=== PATIENT | female | born 1935 | race Caucasian/White ===

== ENCOUNTER 2017-06-10 23:07 | Inpatient (IN) | payer MEDICARE, MEDICAID ==
[2017-06-11 00:26] LABS: Bilirubin Negative (Negative); Blood, Urine Trace (Negative); Clarity CLEAR (Clear); Glucose, Urine (Dipstick) Negative (Negative); Leukocyte Moderate (Negative); Nitrite Negative (Negative); Protein, Urine (Dipstick) 30 mg/dL (Neg-Trace); Specific Gravity, Urine 1.007 (1.002-1.036); pH, Urine 7.5 (5.0-9.0)
[2017-06-11 00:29] LABS: Bacteria/HPF None Seen HPF (None Seen); Hyaline Casts/LPF 0-3 HYALINE CAST LPF (0-3 Hyaline); Pathc Cast-AUWi Flag 0.29 (0-2.49); Squamous Epithelial 0-3 HPF (0-3); WBC/HPF 21-50 HPF (0-3)
[2017-06-11 01:24] LABS: #Eosinphils 0.1 thou/uL (0.0-0.7); #Lymphocytes 0.7 thou/uL (1.20-3.40); #Monocytes 1.1 thou/uL (0.11-0.59); #Neutrophils 9.2 thou/uL (1.40-6.50); %Basophils 0.2 % (0.0-1.0); %Eosinophils 1.1 % (0.0-10.0); %Monocytes 9.8 % (0.0-10.0); Hemoglobin 11.9 g/dL (12.0-16.0); Mean Corpuscular HGB CONC 33.6 g/dL (32.0-36.0); Mean Corpuscular Hemoglobin 29.2 pg (27.0-31.0); Mean Corpuscular Volume 86.8 fl (81.0-99.0); Mean Platelet Volume 8.8 fL (7.4-10.4); Platelet Count 243 thou/uL (130-400); RBC Distribution Width 13.2 % (11.5-14.5); Red Blood Cell (RBC) Count 4.07 mill/uL (4.20-5.40); White Blood Cell (WBC) Count 11.1 thou/uL (4.8-10.8)
[2017-06-11 01:44] LABS: Anion Gap 12 mmol/L (10-20); BUN (Urea Nitrogen) 10 mg/dL (9.8-20.1); Calc. Creatinine Clearance 0 mL/min (70-130); Calcium 9.2 mg/dL (7.8-10.44); Carbon Dioxide 26 mmol/L (23-31); Chloride 97 mmol/L (98-107); Estimated GFR-MDRD 75; Glucose 121 mg/dL (83-110); Potassium 3.4 mmol/L (3.5-5.1); Sodium 132 mmol/L (136-145)
[2017-06-11] MEDS ORDERED: Bisacodyl 10 MG SUPP PR PRN (01:54)
[2017-06-11] MEDS ORDERED: Ondansetron HCl/PF 4 MG/2 ML Vial IVP PRN (02:02)
[2017-06-11] MEDS ORDERED: Dextrose 50% Abboject 50 ML SYRINGE SLOW IVP PRN (02:02)
[2017-06-11] MEDS ORDERED: HumaLOG 300 UNITS/3 ML VIAL SC PRN (02:02)
[2017-06-11] MEDS ORDERED: Ondansetron ODT 4 MG TAB PO PRN (02:02)
[2017-06-11] MEDS ORDERED: Dextrose 5% in Water 1,000 ML IV PRN (02:02)
[2017-06-11] MEDS ORDERED: Acetaminophen 500 MG TAB PO PRN (02:10)
[2017-06-11] MEDS ORDERED: Potassium Chloride 40 MEQ in Sodium Chloride 0.9% 250 ML 250 ML IVPB SCH (03:00)
[2017-06-11 03:21] LABS: CKMB 6.2 ng/mL (0-6.6); Troponin I 0.018 ng/mL (< 0.028)
[2017-06-11 03:49] LABS: Anion Gap 11 mmol/L (10-20); BUN (Urea Nitrogen) 9 mg/dL (9.8-20.1); Calc. Creatinine Clearance 0 mL/min (70-130); Calcium 9.2 mg/dL (7.8-10.44); Carbon Dioxide 28 mmol/L (23-31); Chloride 97 mmol/L (98-107); Estimated GFR-MDRD 72; Glucose 122 mg/dL (83-110); Potassium 3.5 mmol/L (3.5-5.1); Sodium 132 mmol/L (136-145)
[2017-06-11] MEDS: hydrALAZINE 20 MG/ML VIAL SLOW IVP PRN ×2 (05:19→17:27)
--- NOTE | 2017-06-11 05:38 | HP ---
DATE OF ADMISSION: 06/11/2017 ATTENDING PHYSICIAN: Dr. Hammond. TRAUMA ACTIVATION: Not applicable. HISTORY OF PRESENT ILLNESS: Rylie Harp is an 82-year-old female with a history of dementia who pre sented to [facility], status post fall. The patient is a poor historian and majority of the histo ry was obtained from records review and discussion with ER personnel. Patient reports falling after attempting to get up from a chair earlier today. Per ER physician, the patient has a history of freq uent UTIs and had been demonstrating some increased confusion over the weekend, but appears to be at baseline at this time. She had a scalp contusion and left hip pain. She was evaluated by the emerge ncy room and found to have a small midline subdural versus subarachnoid hemorrhage. Neurosurgery was notified and Trauma Services was asked to admit. Upon my evaluation, the patient has vocalized no c omplaint. ALLERGIES: CODEINE, ADHESIVE TAPE, IODINE, LATEX, NATURAL RUBBER, SHELLFISH-CONTAINING PRODUCTS, and SULFONAMIDE. PAST MEDICAL HISTORY: Significant for dementia; hypertension; diabetes; hypothyroidism; hyperlipidem ia; coronary artery disease, status post bypass; GERD; history of CVA; osteoporosis; frequent falls; anxiety and depression. PAST SURGICAL HISTORY: Coronary artery bypass in 2001, cholecystectomy, hysterectomy, tubal ligation , and left hip replacement. HOME MEDICATIONS: Include aspirin 81 mg, atorvastatin 20 mg, clonidine 0.1 mg p.r.n., benzocaine mary enges p.r.n. daily, CoQ10 daily, Colace 100 mg b.i.d., Dulcolax suppository p.r.n., iron supplement b .i.d., fluoxetine 80 mg at bedtime, folic acid 800 mcg daily, sliding scale insulin, Synthroid 100 mc g p.o. daily, lisinopril 40 mg p.o. daily, loperamide p.r.n., milk of magnesia p.r.n., MiraLax p.r.n. , multivitamins daily, nitropatch 0.2 mg per hour transdermal daily, Zofran 4 mg q.4 hours p.r.n., My rbetriq 10 mg p.o. daily, Protonix 40 mg p.o. daily, Sinemet 25-100 t.i.d., Ultram 50 mg p.o. p.r.n., valsartan 40 mg p.o. daily, Tums p.r.n., Tylenol 1 gram p.r.n. SOCIAL HISTORY: Patient is a resident at [facility]. Reportedly, she is a past to bacco user, but no report of any alcohol or illicit drug use. FAMILY HISTORY: Unobtainable. REVIEW OF SYSTEMS: Unobtainable. PHYSICAL EXAMINATION: VITAL SIGNS: Blood pressure 174/86, pulse 57, O2 sat 92% on room air, temperature 98.1. GENERAL: A well-developed elderly female resting in bed, in no acute distress. HEAD: Normocephalic. EYES: Pupils are PERRLA. Extraocular movements are intact. NECK: Supple. Trachea is midline. There does not appear to be any midline cervical tenderness. CHEST/PULMONARY: Atraumatic. No tenderness to palpation. Normal work of breathing. Symmetric rise. CARDIOVASCULAR: Regular rate and rhythm, systolic ejection murmur. ABDOMEN/GASTROINTESTINAL: Soft, nontender, nondistended. Bowel sounds are positive. BACK: Reported as being within normal limits. MUSCULOSKELETAL: Bilateral upper extremities within normal limits. Left lower extremity within norm al limits. No edema. Pulses are 2+ bilaterally. NEUROLOGIC: GCS is 14 secondary to confusion. The patient is oriented to self, person, place, and s ituation. LABORATORY DATA: WBC 11.1, hemoglobin 11.9, hematocrit 35.3, platelet count 243,000. Sodium 132, po tassium 3.4, chloride 97, carbon dioxide 26, BUN 10, creatinine 0.74, glucose 121. Urinalysis with p roteinuria, trace blood, moderate leukocyte esterase, and 21-50 wbc's. RADIOGRAPHIC FINDINGS: CT of the head, read by Radiology as having a trace midline subdural versus s ubarachnoid. CT of the C-spine, official read is pending. X-ray of the pelvis appears similar to pr evious without acute fracture, but official read is pending. ASSESSMENT: 1. Status post mechanical fall. 2. Small subdural hemorrhage. 3. Acute traumatic pain. 4. Hypokalemia. 5. Hyponatremia, chronic and stable. 6. History of dementia. 7. History of hypertension. 8. History of coronary artery disease. PLAN: Admit to Trauma Services. I have discussed the case with Neurosurgery who recommends a repeat head CT in the a.m., head of bed greater than 30 degrees, systolic blood pressure less than 150 and frequent neuro checks. Empiric antibiotics for suspected UTI. Follow urine culture. Replete electr olytes. Repeat labs in the a.m. Followup CT of C-spine results. The patient's assessment and plan was discussed with Dr. Hammond. All questions were answered at the time of this dictation.
[2017-06-11 06:27] VITALS: BMI 25.9
--- NOTE | 2017-06-11 08:52 | CON ---
DATE OF CONSULTATION: 06/11/2017 Ms. Harp is an 82-year-old woman, who fell at her [place] [facility] yesterday, late evening or early mor nestor hours, and this morning, she was brought to the emergency department at [facility] by EMS. Alessandro colón had a CT scan of the brain and then later of the C-spine, which revealed a small parafalcine subdur al hemorrhage anteriorly. This could potentially represent an area of calcification, as she does hav e some calcifications on the scan done 2 years ago, but it is certainly an increase in the amount of hyperdense material in this location. So, given the trauma, it is reasonable that there is hemorrhag e acutely. C-spine is clear other than degenerative disease, but no fracture, dislocation, or other acute change. I am seeing the patient at bedside this morning. She is minimally uncomfortable and s omewhat confused, but GCS is overall 14. She has good motor control of the bilateral upper and lower extremities. There is no sensory disturbance that I can discern. Pupils are equal, round, reactive to light. Extraocular movements are intact. At this time, Neurosurgery's plan will just be to repe at the scan this morning to make sure that her imaging is stable. If so and she is safe to return to her [place] [facility], then we would support discharge as early as lunch time today.
--- NOTE | 2017-06-11 08:56 | CT ---
PRELIMINARY REPORT/[facility]/EMERGENTY AFTER-HOURS PROCEDURE Addendum created by Mauricio Petit MD on 06/11/2017 12:28 AM Central Time ([place] & [place] THIS REPORT CONTAINS FINDINGS THAT MAY BE CRITICAL TO PATIENT CARE. The findings were verbally commun icated via telephone conference with CASPER TUCKER at 12:28 AM CDT on 06/11/2017. The findings were a cknowledged and understood. Initial Report created on 06/11/2017 12:24 AM Central Time ([place] & [place]) CT Head Without Intravenous Contrast CLINICAL HISTORY: 82 years old, female; Injury or trauma; Fall; Initial encounter; Abrasion; Not specified; Patient HX: Er 4; 82 yo f presents to the ed S/P fall. Pt fell at 2100 today (1-1.5 hours ago). Pt tried getttin g up from chair, fell, spun around and hit head against chair. Pt reports no loc, no dizziness. Pt re ports left hip pain with movement. Family reports frequent falls. Pt reports she is not on blood thin ner medication. TECHNIQUE: Axial computed tomography images of the head/brain without intravenous contrast. COMPARISON: Head CT report dated 01/25/2016 FINDINGS: Brain: Minimal midline hyperdensity images 22-23 Mild volume loss. Mild white matter disease. No ramiro a. Ventricles: Unremarkable. No ventriculomegaly. Bones/joints: Unremarkable. No acute fracture. Soft tissues: Mild right parietal scalp swelling at the convexity Sinuses: Unremarkable as visualized. No acute sinusitis. Mastoid air cells: Unremarkable as visualized. No mastoid effusion. IMPRESSION: Trace midline subdural versus arachnoid hemorrhage suspected. Continued CT followup recommended Thank you for allowing us to participate in the care of your patient. Dictated and Authenticated by: Mauricio Petit MD 06/11/2017 12:24 AM Central Time ([place] & [place]) FINAL REPORT EMERGENCY AFTER HOURS STUDY CT BRAIN NONCONTRAST: DATE: 06/11/17. TIME: 12:17 a.m. HISTORY: An 82-year-old female status post acute head trauma from fall. COMPARISON: 10/12/15. FINDINGS: There is a tiny amount of extraaxial hyperdensity along the anterior interhemispheric falx on the cur rent study, which was not present on previous CT of 10/12/15, indicating that it is probably a tiny am ount of subdural blood. There is no other acute intraaxial or extraaxial hemorrhage. The ventricles are enlarged on the basis of central parenchymal volume loss. There are moderate to severe chronic ischemic white matter changes diffusely. No mass effect, midline shift, extraaxial fluid collection, or acute calvarial fracture. There is also a new small focal superficial soft tissue contusion at the right posterior scalp vertex . Agree with [facility]. IMPRESSION: 1. Tiny amount of acute subdural hemorrhage along the interhemispheric falx. Recommend short interv al followup CT. 2. No other hemorrhage, and no mass effect. 3. Involutional changes and chronic ischemic white matter changes. YNES Wren POS: [facility]
[2017-06-11] MEDS ORDERED: Nitrofurantoin Monohyd/M-Cryst 100 MG CAP PO SCH (09:00)
[2017-06-11] MEDS ORDERED: Sulfameth/Trimethoprim DS 800-160mg TAB PO SCH (09:00)
[2017-06-11] MEDS ORDERED: Valsartan 80 MG TAB PO SCH (09:00)
[2017-06-11] MEDS ORDERED: Lisinopril 20 MG TAB PO SCH (09:00)
[2017-06-11] MEDS ORDERED: Levothyroxine Sodium 100 MCG TAB PO SCH (09:00)
[2017-06-11] MEDS ORDERED: Docusate 100 MG CAP PO SCH (09:00)
[2017-06-11] MEDS ORDERED: Famotidine 20 MG TAB PO SCH (09:00)
--- NOTE | 2017-06-11 09:02 | CT ---
PRELIMINARY REPORT/[facility]/EMERGENTY AFTER-HOURS PROCEDURE CT Cervical Spine Without Intravenous Contrast CLINICAL HISTORY: 82 years old, female; Injury or trauma; Fall; Initial encounter; Abrasion; Patient HX: Er 4; 82 yo f presents to the ed S/P fall. Pt fell at 2100 today. Pt tried gettting up from chair, fell, spun aroun d and hit head against chair. Pt reports no loc, no dizziness. TECHNIQUE: Axial computed tomography images of the cervical spine without intravenous contrast. Coronal and sagi ttal reformatted images were created and reviewed. COMPARISON: No relevant prior studies available. FINDINGS: Vertebrae: Minimal multilevel degenerative spondylolisthesis. No acute fracture. Discs/spinal canal/neural foramina: Multilevel degenerative disc disease. Multilevel bilateral facet and uncovertebral arthropathy. Right C5-6 neural foraminal narrowing. No spinal canal stenosis. Soft tissues: Normal. Lung apices: Normal as visualized. IMPRESSION: 1. No acute findings. 2. Non-acute findings are described above. Thank you for allowing us to participate in the care of your patient. Dictated and Authenticated by: Keaton He MD 06/11/2017 2:38 AM Central Time ([place] & [place]) FINAL REPORT CT CERVICAL SPINE: I agree with the preliminary report given by Dr. He of [facility]. POS: [facility]
--- NOTE | 2017-06-11 09:09 | RAD ---
PELVIS 1 VIEW: HISTORY: Fall. Hip pain. COMPARISON: None. FINDINGS: There is heterotopic ossification along the left lesser greater trochanters. The obturator rings yolette ear to be intact. No displaced fracture or malalignment is appreciated. IMPRESSION: Heterotopic ossification. No displaced fracture or malalignment. POS: [facility]
[2017-06-11 09:29] LABS: Magnesium 1.9 mg/dL (1.6-2.6); Phosphorus 3.1 mg/dL (2.3-4.7)
[2017-06-11] MEDS ORDERED: Furosemide 20 MG TAB PO SCH (10:30)
[2017-06-11] MEDS ORDERED: Prevnar 13-Val Conj/PF 0.5 ML SYRINGE IM ONE (12:00)
--- NOTE | 2017-06-11 14:49 | CT ---
CT BRAIN NONCONTRAST: HISTORY: An 82-year-old female followup subdural hemorrhage. FINDINGS: There is no midline shift or any other mass effect. There is no evidence of large cortical infarct, obstructive hydrocephalus, or extraaxial fluid collection. The calvarium is intact. There is diffus e parenchymal volume loss. There are low attenuation areas in the white matter. These are nonspecif ic, but in a patient of this age, they are probably chronic ischemic white matter changes due to micr ovascular atherosclerosis. The tiny amount of blood along the anterior interhemispheric falx is stab le compared to CT obtained at 12:17 a.m. on 06/11/17. There is no new hemorrhage. IMPRESSION: 1) Tiny amount of subdural hemorrhage along the interhemispheric falx has not changed since 12:17 a.m . 2) Involutional changes and chronic ischemic white matter changes. 3) No other potentially acute intracranial findings. ysabel [] POS: [facility]
[2017-06-11 17:43] VITALS: TEMP 98.3
[2017-06-11 17:44] VITALS: BP 133/59
--- NOTE | 2017-06-11 18:56 | DIS ---
DATE OF ADMISSION: 06/10/2017 DATE OF DISCHARGE: 06/11/2017 ADMITTING PHYSICIAN: Dr. Hammond. DISCHARGING PHYSICIAN: Dr. Salinas. ADMITTING DIAGNOSES: 1. Status post mechanical fall. 2. Small anterior falcine frontal subdural hematoma. 3. Acute hypokalemia. 4. Chronic hyponatremia, stable. 5. History of senile dementia of Alzheimer's type. 6. History of Parkinson disease. HOSPITAL COURSE: This is an 82-year-old woman with a history of senile dementia of Alzheimer's type and Parkinson disease. The patient is a resident of an extended care facility from where she was bro ught to the Emergency Department for a mechanical fall. Trauma workup was consistent with acute smal l anterior falcine frontal subdural hematoma. The patient's Tammy coma scale has remained at 14-15 . The patient was evaluated by Neurosurgery and nonoperative management was recommended. A follow u p CT scan has been obtained which reveals stable small anterior falcine frontal subdural hematoma. T he patient has remained hemodynamically stable since admission. OBJECTIVE: CURRENT VITAL SIGNS: Include blood pressure 144/67, pulse 76, respirations 16, temperature 97.7 degr ees Fahrenheit, and oxygen saturation 96% on room air. HEENT: Examination reveals normocephalic and atraumatic. Pupils are equal, round, reactive to light and accommodation. HEART: Reveals regular rate and rhythm, no murmurs or gallops auscultated. LUNGS: Clear to auscultation bilaterally. Breathing is regular and unlabored. ABDOMEN: Soft, nontender, nondistended. Liver and spleen are nonpalpable below costal margin. EXTREMITIES: Reveals 2+ radial and pedal pulses bilaterally. No ankle edema is present. NEUROLOGIC: Examination reveals no focal deficits present. In fact, patient's [place] coma scale cu rrently is 15. MUSCULOSKELETAL: Examination reveals 4/5 muscle strength in bilateral upper and lower extremities. Cervical spine is nontender to palpation, active or passive range of motion. Thoracic and lumbar spi jean are nontender to palpation. No gross bony deformities are noted. LABORATORY DATA: Laboratory findings today includes sodium 132, potassium 3.5, chloride is 97, bicar bonate 28, BUN 9, creatinine 0.77, glucose 122, magnesium 1.9, phosphorus 3.1. IMAGING DATA: I personally reviewed the repeat CT scan of the brain which reveals very small anterio r falcine subdural hematoma, this is unchanged. IMPRESSION: 1. Status post mechanical fall. 2. Stable acute traumatic brain injury with small anterior falcine frontal subdural hematoma. 3. History of Parkinson disease. 4. History of senile dementia, Alzheimer's type. PLAN: 1. The patient will be discharged back to the extended care facility where physical and occupational therapy will be continued. 2. She is to be returned to the emergency department with any change in her mental status, worsening gait imbalance, especially if any lateralizing signs. She is to resume all her prehospital medicati on as prescribed by her primary care physicians. No new medications were added. 3. The patient requires no further followup from this Trauma Surgery standpoint except for as needed . 4. Follow up by Neurosurgery, this will be accomplished through the Neurosurgery office.
[2017-06-11] MEDS ORDERED: FLUoxetine HCl 20 MG CAP PO SCH (21:00)
== END 2017-06-11 17:40 | DRG 86 ==
LOC: ERS 23:07 → 2NO 06-11 01:45 → OBSVTOIN 06-11 02:02
PROVIDERS: ADMIT Specialist; ATTEND Specialist
DX: S06.5X0A Traumatic subdural hemorrhage without loss of consciousness, initial encounter (principal); E87.1 Hypo-osmolality and hyponatremia; E11.9 Type 2 diabetes mellitus without complications; G30.1 Alzheimer's disease with late onset; F02.80 Dementia in other diseases classified elsewhere, unspecified severity, without behavioral disturbance, psychotic disturbance, mood disturbance, and anxiety; E87.6 Hypokalemia; E03.9 Hypothyroidism, unspecified; I10 Essential (primary) hypertension; E78.5 Hyperlipidemia, unspecified; I25.10 Atherosclerotic heart disease of native coronary artery without angina pectoris; K21.9 Gastro-esophageal reflux disease without esophagitis; M81.0 Age-related osteoporosis without current pathological fracture; Z91.81 History of falling; F41.9 Anxiety disorder, unspecified; F32.9 Major depressive disorder, single episode, unspecified; W19.XXXA Unspecified fall, initial encounter; Z90.49 Acquired absence of other specified parts of digestive tract; Z90.710 Acquired absence of both cervix and uterus; Z96.642 Presence of left artificial hip joint; Z79.82 Long term (current) use of aspirin; Z79.899 Other long term (current) drug therapy; Z87.891 Personal history of nicotine dependence; Z95.1 Presence of aortocoronary bypass graft; Z88.5 Allergy status to narcotic agent; Z86.73 Personal history of transient ischemic attack (TIA), and cerebral infarction without residual deficits
CPT/HCPCS: 36415; 36416; 70450; 72125; 72170; 80048; 81003; 81015; 82553; 83735; 84100; 84484; 85025; 87086; 96374; 96375; G0390; G8978-GP-CL; G8979-GP-CK; J0360; J0696; J3480; J7050

== ENCOUNTER 2017-07-11 13:08 | Outpatient (CLI) | payer MEDICARE, MEDICAID ==
--- NOTE | 2017-07-11 15:13 | CT ---
CT HEAD, NONCONTRAST: Comparison: 06-11-17 Indication: Subdural hematoma, follow up. FINDINGS: Prior minute subdural hematoma along the interhemispheric falx has resolved. There is no extraaxial h emorrhage of significance remaining. There is motion artifact limiting detail. Chronic ischemic disea se and prominence of the ventricular system are present, stable appearing. IMPRESSION: Interval resolution of prior minute subdural hematoma. POS: [facility]
== END 2017-07-11 13:09 | disposition home or self-care (01) ==
LOC: TBSIIMAG 13:08
PROVIDERS: ATTEND Neurological Surgery
DX: S06.5X0A Traumatic subdural hemorrhage without loss of consciousness, initial encounter (principal)
CPT/HCPCS: 70450

== ENCOUNTER 2018-06-18 11:54 | Emergency (ER) | payer MEDICARE, MEDICAID ==
--- NOTE | 2018-06-18 12:40 | RAD ---
LEFT HIP TWO VIEWS: HISTORY: Fall. Left hip pain. COMPARISON: Previous exam from 05/18/2016. TECHNIQUE: AP and lateral views of left hip obtained. FINDINGS: The patient has had a previous left hip arthroplasty. A large osseous fragment is seen along the med ial aspect of the left hip joint, where I suspect there was a fractured lesser trochanter. This has undergone some adjacent areas of myositis ossificans as well, likely restricting the motion of th e hip medially. No evidence of acute left hip fractures or acute bony lesions seen. Previously fractured greater tro chanter appears to now be healed and has fused with the proximal left femur. IMPRESSION: 1. No evidence of acute left hip abnormalities seen. 2. Post surgical changes seen. Transcribed Date/Time: 06/18/2018 1:30 PM
--- NOTE | 2018-06-18 13:08 | CT ---
CT BRAIN WITHOUT CONTRAST: HISTORY: Fall. Altered mental status. Hypertension. Diabetes. COMPARISON: 07/12/2017 FINDINGS: Changes of chronic small vessel ischemic disease and cortical atrophy are stable. The ventricular si ze is stable, and the basilar cisterns are patent. No evidence of acute infarct, hemorrhage, midline shift, or abnormal extraaxial fluid collections is seen. The bony calvarium is intact. The visuali zed paranasal sinuses and mastoid air cells are well aerated. IMPRESSION: No CT evidence of acute intracranial process. POS: [facility]
[2018-06-18 13:31] LABS: Hemoglobin 10.2 g/dL (12.0-16.0); Mean Corpuscular HGB CONC 31.4 g/dL (32.0-36.0); Mean Corpuscular Hemoglobin 27.1 pg (27.0-31.0); Mean Corpuscular Volume 86.2 fL (78.0-98.0); Mean Platelet Volume 14.5 fL (7.4-10.4); Platelet Count 24 thou/uL (130-400); RBC Distribution Width 12.4 % (11.5-14.5); Red Blood Cell (RBC) Count 3.77 mill/uL (4.20-5.40); White Blood Cell (WBC) Count 8.6 thou/uL (4.8-10.8)
[2018-06-18 13:37] LABS: ALT (SGPT) 8 U/L (8-55); AST (SGOT) 16 U/L (5-34); Albumin 3.9 g/dL (3.4-4.8); Alkaline Phosphatase 125 U/L (40-150); Anion Gap 10 mmol/L (10-20); BUN (Urea Nitrogen) 25 mg/dL (9.8-20.1); Bilirubin, Total 0.3 mg/dL (0.2-1.2); Calc. Creatinine Clearance 0 mL/min (70-130); Calcium 9.3 mg/dL (7.8-10.44); Carbon Dioxide 30 mmol/L (23-31); Chloride 99 mmol/L (98-107); Estimated GFR-MDRD 62; Globulin 2.3 g/dL (2.4-3.5); Glucose 100 mg/dL (83-110); Potassium 4.1 mmol/L (3.5-5.1); Protein, Total 6.2 g/dL (6.0-8.3); Sodium 135 mmol/L (136-145)
[2018-06-18 13:46] LABS: #Eosinphils 0.2 thou/uL (0.0-0.7); #Lymphocytes 0.8 thou/uL (1.20-3.40); #Monocytes 1.3 thou/uL (0.11-0.59); #Neutrophils 6.2 thou/uL (1.40-6.50); %Basophils 0.2 % (0.0-1.0); %Eosinophils 2.9 % (0.0-10.0); %Lymphocytes 9.7 % (21.0-51.0); %Monocytes 14.8 % (0.0-10.0); %Neutrophils 72.3 % (42.0-75.0); Hypochromia SLIGHT = 6-15 cells (100X) (0-5/hpf); MDiff Complete? YES; Platelet Morphology Comment Appears Decreased
[2018-06-18 15:53] LABS: Hemoglobin 10.1 g/dL (12.0-16.0); Mean Corpuscular HGB CONC 31.5 g/dL (32.0-36.0); Mean Corpuscular Hemoglobin 27.4 pg (27.0-31.0); Mean Corpuscular Volume 86.8 fL (78.0-98.0); RBC Distribution Width 12.5 % (11.5-14.5); Red Blood Cell (RBC) Count 3.68 mill/uL (4.20-5.40); White Blood Cell (WBC) Count 8.4 thou/uL (4.8-10.8)
[2018-06-18 16:14] LABS: #Eosinphils 0.2 thou/uL (0.0-0.7); #Monocytes 1.2 thou/uL (0.11-0.59); #Neutrophils 5.9 thou/uL (1.40-6.50); %Basophils 0.4 % (0.0-1.0); %Eosinophils 2.9 % (0.0-10.0); %Lymphocytes 12.1 % (21.0-51.0); %Monocytes 13.8 % (0.0-10.0); %Neutrophils 70.8 % (42.0-75.0); Mean Platelet Volume 14.7 fL (7.4-10.4); Platelet Morphology Comment PLT clumps seen-ADEQ
[2018-06-18 16:15] LABS: Large Platelets SLIGHT
[2018-06-18] MEDS ORDERED: Lorazepam 1 MG TAB ONE (17:17)
== END 2018-06-18 17:46 ==
LOC: ERS 11:54
DX: M25.552 Pain in left hip (principal); E03.9 Hypothyroidism, unspecified; E66.01 Morbid (severe) obesity due to excess calories; E11.9 Type 2 diabetes mellitus without complications; K21.9 Gastro-esophageal reflux disease without esophagitis; F41.9 Anxiety disorder, unspecified; F42.9 Obsessive-compulsive disorder, unspecified; E78.5 Hyperlipidemia, unspecified; Z87.891 Personal history of nicotine dependence; Z79.82 Long term (current) use of aspirin; Z79.899 Other long term (current) drug therapy; W19.XXXA Unspecified fall, initial encounter
CPT/HCPCS: 36415; 70450; 80053; 84484; 85025; 85060; 93005

== ENCOUNTER 2018-08-31 08:29 | Inpatient (IN) | payer MEDICARE, MEDICAID ==
[2018-08-31] MEDS ORDERED: Ondansetron PF 4 MG/2 ML Vial ONE (08:44)
[2018-08-31 09:25] LABS: Bilirubin Negative (Negative); Blood, Urine Negative (Negative); Clarity Clear (Clear); Glucose, Urine (Dipstick) Normal (Negative); Leukocyte Negative Leu/uL (Negative); Mucous/LPF Rare LPF (<2+); Nitrite Negative (Negative); Protein, Urine (Dipstick) 30 mg/dL (Neg-Trace); RBC/HPF 0-3 HPF (0-3); Squamous Epithelial 0-3 HPF (0-3); Urobilinogen 3 mg/dL (Less than 2)
[2018-08-31 09:36] LABS: Bacteria/HPF 1+ HPF (None Seen)
[2018-08-31 09:36] LABS: ALT (SGPT) Less than 7 U/L (8-55); AST (SGOT) 19 U/L (5-34); Albumin 3.9 g/dL (3.4-4.8); Alkaline Phosphatase 123 U/L (40-150); Anion Gap 10 mmol/L (10-20); BUN (Urea Nitrogen) 14 mg/dL (9.8-20.1); Bilirubin, Total 0.6 mg/dL (0.2-1.2); Calc. Creatinine Clearance 0 mL/min (70-130); Calcium 9.2 mg/dL (7.8-10.44); Carbon Dioxide 29 mmol/L (23-31); Chloride 89 mmol/L (98-107); Estimated GFR-MDRD 58; Globulin 2.4 g/dL (2.4-3.5); Glucose 109 mg/dL (83-110); Potassium 3.4 mmol/L (3.5-5.1); Protein, Total 6.3 g/dL (6.0-8.3); Sodium 125 mmol/L (136-145)
[2018-08-31 09:38] LABS: Hemoglobin 9.8 g/dL (12.0-16.0); Mean Corpuscular HGB CONC 32.7 g/dL (32.0-36.0); Mean Corpuscular Hemoglobin 26.1 pg (27.0-31.0); Mean Corpuscular Volume 79.9 fL (78.0-98.0); RBC Distribution Width 14.2 % (11.5-14.5); Red Blood Cell (RBC) Count 3.76 mill/uL (4.20-5.40); White Blood Cell (WBC) Count 10.9 thou/uL (4.8-10.8)
[2018-08-31 09:45] LABS: #Eosinphils 0.1 thou/uL (0.0-0.7); #Lymphocytes 0.7 thou/uL (1.20-3.40); #Neutrophils 9.3 thou/uL (1.40-6.50); %Basophils 0.2 % (0.0-1.0); %Eosinophils 0.6 % (0.0-10.0); %Lymphocytes 5.9 % (21.0-51.0); %Monocytes 8.7 % (0.0-10.0); %Neutrophils 84.6 % (42.0-75.0); MDiff Complete? YES; Mean Platelet Volume 11.2 fL (7.4-10.4); Platelet Count 115 thou/uL (130-400); Platelet Morphology Comment PLT clumps seen-LOW; Polychromasia SLIGHT = 2-3 cells (100X) (0-2/hpf)
--- NOTE | 2018-08-31 11:42 | PDOC.FPRHP ---
- History of Present Illness Chief Complaint: nausea/vomiting History of Present Illness: Mrs. Harp is a 83yo senior care resident with h/o dementia, DMII, HTN, CVA , TIA, and CHF s/p CABG who presents nausea and vomiting. Patient's baseline mentation is confused and disoriented thus history was obtained from daughters at bedside. Daughters state that Mrs. Harp was in her usual state of health until this morning when they got a call from the senior care that she was found hunched over a toilet vomiting. She was initially hypertensive at the senior care, and was then transported to the ED for further evaluation and management. The daughters note she is more clammy, generally tired, and less talkative today. They state she has had decreased PO intake as of late, barely eating any food or drinking any liquids other than a few sip of Ensures at meals, and have noticed a weight loss over the past few months. She current denies any CP, SOB, diarrhea/constipation, dysuria, abdominal pain, or recent illness. She does have a history of recurrent UTI's per the daughters. She also has a history of GI bleeds requiring transfusion, last a few years ago, unable to identify location and had endoscopy and pill cam at that time. NO recent s/s of acute GI bleed. ED Course: Given 1L NS bolus and zofran with relief of nausea. Na found to be 125. Admitted for symptomatic hyponatremia. - Allergies/Adverse Reactions Allergies Allergy/AdvReac Type Severity Reaction Status Date / Time iodine Allergy Severe Anaphylaxis Verified 05/28/16 10:47 shellfish derived Allergy Severe Anaphylaxis Verified 05/28/16 10:47 codeine Allergy Unknown Verified 05/28/16 10:47 Sulfa (Sulfonamide Allergy Unknown Verified 05/28/16 10:47 Antibiotics) adhesive tape Allergy Verified 05/28/16 10:47 Latex, Natural Rubber Allergy Verified 05/28/16 10:47 - Home Medications Medication Instructions Recorded Confirmed Type Acetaminophen [Tylenol Extra 500 mg PO Q4HR PRN 05/21/16 08/31/18 History Strength] Atorvastatin Calcium [Lipitor] 20 mg PO HS 05/21/16 08/31/18 History Benzocaine/Menthol [Cepacol Sore 1 each PO Q12HR PRN 05/21/16 08/31/18 History Throat Lozenge] Calcium Carbonate [Tums] 1,000 mg PO Q4HR PRN 05/21/16 08/31/18 History Carbidopa/Levodopa [Sinemet CR] 1 tab PO TID 05/21/16 08/31/18 History Docusate [Colace] 100 mg PO BID 05/21/16 08/31/18 History FLUoxetine HCl 80 mg PO DAILY 05/21/16 08/31/18 History Folic Acid 0.8 mg PO DAILY 05/21/16 08/31/18 History Hydrocortisone [Proctocream-HC 1 applic WI BID PRN 05/21/16 08/31/18 History Cream] Insulin Regular [HumuLIN R Vial] 1 unit SC ASDIR 05/21/16 08/31/18 History Levothyroxine Sodium [Synthroid] 100 mcg PO QAM 05/21/16 08/31/18 History Lisinopril 40 mg PO DAILY 05/21/16 08/31/18 History Loperamide HCl [Loperamide] 2 mg PO ASDIR PRN 05/21/16 08/31/18 History Magnesium Hydroxide [Milk of 30 ml PO HS PRN 05/21/16 08/31/18 History Magnesia] Multivitamin [Multivitamins] 1 cap PO DAILY 05/21/16 08/31/18 History Nitroglycerin [Nitro-Dur Patch] 0.2 mg TD DAILY 05/21/16 08/31/18 History Ondansetron [Zofran ODT] 4 mg PO Q4HR PRN 05/21/16 08/31/18 History Polyethylene Glycol 3350 [Miralax] 17 gm PO DAILY 05/21/16 08/31/18 History Ubidecarenone [Coenzyme Q10] 100 mg PO DAILY 05/21/16 08/31/18 History cloNIDine HCl 0.1 mg PO Q6HR PRN 05/21/16 08/31/18 History Hypromellose [Pure & Gentle Eye 1 drop EA EYE BID 06/11/17 08/31/18 History Drops] cloNIDine [Catapres] 0.1 mg PO DAILY 06/11/17 08/31/18 History Aspirin [Adult Low Dose Aspirin EC] 81 mg PO DAILY 08/31/18 08/31/18 History Bisacodyl [Dulcolax] 10 mg WI DAILY PRN 08/31/18 08/31/18 History BuPROPion XL [Wellbutrin XL] 150 mg PO DAILY 08/31/18 08/31/18 History Donepezil HCl [Aricept] 10 mg PO HS 08/31/18 08/31/18 History Hydrochlorothiazide 12.5 mg PO DAILY 08/31/18 08/31/18 History Losartan Potassium 50 mg PO DAILY 08/31/18 08/31/18 History Melatonin 6 mg PO HS 08/31/18 08/31/18 History Nystatin [Nystatin Powder] 1 applic TOP BID 08/31/18 08/31/18 History guaiFENesin [Guaifenesin] 200 mg PO Q4HR PRN 08/31/18 08/31/18 History - History PMHx: Alzheimer's, Parkinson's, HTN, Hypothyroid, HLD, DM II, GERD, CHF, h/o GI bleeds (last few years ago), h/o CVA, h/o subdural, h/o TIA PSHx: CABG x4v - 2001 Marisa, hysterectomy, L hip replacement FHx: NC Social: Smoking in past but quit >10 years ago. No EtOH or drug use. - Review of Systems ROS unobtainable: other (ROS per senior care and family 2/2 patient's h/o dementia.) General: reports: weight/appetite/sleep changes (decrease weight over past few months.), fatigue. denies: fever/chills ENT: denies: nasal congestion, rhinorrhea Respiratory: denies: cough, congestion, shortness of breath Cardiovascular: denies: chest pain, palpitation, edema Gastrointestinal: reports: nausea, vomiting, abdominal pain (mild and cramping in nature. Occuring on and off over months.). denies: diarrhea, constipation Genitourinary: denies: dysuria, polyuria Skin: denies: rashes Neurological: reports: weakness (generalized fatigue). denies: numbness, syncope, seizure - Vital signs BP: 161/61 HR: 43 RR: 18 Tmax: 97.5 Pox: 99% on RA Wt: 62kg - Physical Exam Constitutional: NAD, awake, alert and oriented (A/O x 2. Quite and confused at times. Baseline mentation per family.) HEENT: normocephalic and atraumatic, PERRLA, EOMI Neck: supple, trachea midline Chest: no-tender to palpation Heart: normal S1/S2, pulses present, no edema, other (Regular rythm, bradycardia , Grade III systolic ejection murmur best heard at base.) Lungs: CTAB, no respiratory distress, good air movement, no rales/rhonchi, no wheezing, no retractions Abdomen: soft, non-tender, bowel sounds present Musculoskeletal: normal structure Neurological: no focal deficit, normal sensation Skin: no rash/lesions Heme/Lymphatic: no unusual bruising or bleeding Psychiatric: other FMR H&P: Results - Labs Result Diagrams: 08/31/18 09:00 08/31/18 09:00 Lab results: WBC 10.9 thou/uL (4.8-10.8) H 08/31/18 09:00 Hgb 9.8 g/dL (12.0-16.0) L 08/31/18 09:00 Hct 30.0 % (36.0-47.0) L 08/31/18 09:00 MCV 79.9 fL (78.0-98.0) 08/31/18 09:00 Plt Count 115 thou/uL (130-400) L 08/31/18 09:00 Neutrophils % 84.6 % (42.0-75.0) H 08/31/18 09:00 Sodium 125 mmol/L (136-145) L 08/31/18 09:00 Potassium 3.4 mmol/L (3.5-5.1) L 08/31/18 09:00 Chloride 89 mmol/L (98-107) L 08/31/18 09:00 Carbon Dioxide 29 mmol/L (23-31) 08/31/18 09:00 BUN 14 mg/dL (9.8-20.1) 08/31/18 09:00 Creatinine 0.92 mg/dL (0.6-1.1) 08/31/18 09:00 Glucose 109 mg/dL (83-110) 08/31/18 09:00 Calcium 9.2 mg/dL (7.8-10.44) 08/31/18 09:00 Total Bilirubin 0.6 mg/dL (0.2-1.2) 08/31/18 09:00 AST 19 U/L (5-34) 08/31/18 09:00 ALT Less than 7 U/L (8-55) L 08/31/18 09:00 Alkaline Phosphatase 123 U/L (40-150) 08/31/18 09:00 Serum Total Protein 6.3 g/dL (6.0-8.3) 08/31/18 09:00 Albumin 3.9 g/dL (3.4-4.8) 08/31/18 09:00 Urine Ketones 10 mg/dL (Negative) A 08/31/18 08:55 Urine Blood Negative (Negative) 08/31/18 08:55 Urine Nitrite Negative (Negative) 08/31/18 08:55 Ur Leukocyte Esterase Negative Hong/uL (Negative) 08/31/18 08:55 Urine RBC 0-3 HPF (0-3) 08/31/18 08:55 Urine WBC 4-6 HPF (0-3) A 08/31/18 08:55 Ur Squamous Epith Cells 0-3 HPF (0-3) 08/31/18 08:55 Urine Bacteria 1+ HPF (None Seen) 08/31/18 08:55 - EKG Interpretation EKG: Sinus bradycardia. 1st degree AV block with WI of 212. No acute T wave or ST changes. FMR H&P: A/P - Problem List (1) Hyponatremia Current Visit: Yes Status: Acute Code(s): E87.1 - HYPO-OSMOLALITY AND HYPONATREMIA (2) Physical deconditioning Current Visit: Yes Status: Chronic Code(s): R53.81 - OTHER [place] (3) Asymptomatic bacteriuria Current Visit: Yes Status: Acute Code(s): R82.71 - BACTERIURIA (4) Coronary artery disease Current Visit: No Status: Chronic Code(s): I25.10 - ATHSCL HEART DISEASE OF [place] CORONARY ARTERY W/O ANG PCTRS Qualifiers: Coronary Disease-Associated Artery/Lesion type: bypass graft [place] vs. transplanted heart: [place] heart Associated angina: without angina Qualified Code(s): I25.810 - Atherosclerosis of coronary artery bypass graft(s) without angina pectoris (5) DM type 2 (diabetes mellitus, type 2) Current Visit: No Status: Chronic Qualifiers: Diabetes mellitus buttermaker helper insulin use: with residential use Diabetes mellitus complication status: with unspecified complications (6) GERD (gastroesophageal reflux disease) Current Visit: No Status: Chronic Code(s): K21.9 - GASTRO-ESOPHAGEAL REFLUX DISEASE WITHOUT ESOPHAGITIS Qualifiers: Esophagitis presence: esophagitis presence not specified Qualified Code(s) : K21.9 - Gastro-esophageal reflux disease without esophagitis Comment: (7) Hypertension Current Visit: No Status: Chronic Code(s): I10 - ESSENTIAL (PRIMARY) HYPERTENSION Qualifiers: Hypertension type: essential hypertension Qualified Code(s): I10 - Essential (primary) hypertension (8) Parkinsons disease Current Visit: No Status: Chronic Code(s): G20 - PARKINSON'S DISEASE - Plan Mrs. Harp is a 83yo senior care resident with h/o dementia, CAD s/p CABG, and HTN who presents for symptomatic hyponatremia. 1. Symptomatic hyponatremia - likely hypovolemic hyponatremia due to poor PO intake - Pt with n/v this morning. Decreased alertness per family. - Na 125 (~132 at last discharge) - Will provide gentle hydration with LR @ 100ml/hr and recheck BMP at 1630 this afternoon and again in AM. - Hold HCTZ at this time, and consider holding Lisinopril if Na does not begin to correct as expected - Serum Osm, Urine Osm, and Urine Na pending 2. Asymptomatic Bacteriuria - UA with 4-6 WBC and 1+ Bacteria. Likely 2/2 contraction and chronic bacteriuria. - Afebrile and without sxs at this time. WBC 10.9. - UCx pending - Will monitor and provide Abx if sxs occur, UCx positive, or pt spikes fever. 3. Physical deconditioning and poor PO intake - chronic in nature. Providing ensures TID with meals. - Fall precautions. - PT/OT and gantry crane operator consulted, appreciate recs - Will check vit D 4. HTN - Continue home cozaar and lisinopril at this time. Hold HCTZ 5. Hypothyroidism - Check TSH. Continue home levo. 6. Dementia/Parkinsons - continue home medications 7. DM II - Placed on mild SS. Will check BG ACHS 8. CAD with CHF - volume depleted at this time. Will provide gently hydration per #1 but monitor volume status closely. - Heart healthy diet with fluid restriction of 2000ml daily. Diet: Heart healthy with ensure TID with meals and 2000ml fluid restriction VTE: Lovenox Code: DNR - discussed with patient's daughter at bedside who is MPoA. Disposition/LOS: Admitted to medical floor of further hydration, increased PO, and correction of Na. Will monitor closely. Anticipate hospitalization >2 days. FMR H&P: Upper Level - Pertinent history 83 yo F w/hx of advanced Alzheimer's Dementia, CAD s/p CABG, CVA, hypothyroid, DM2 and CHF here with complaint from senior care staff of n/v with associated depressed mood. Pt is apparently quite talkative, however this morning is more reserved and wont answer questions. Pt has a hx of recurrent UTIs See recruiting internship portion of note for full ROS, HPI, labs, and vitals All ROS per family General denies fever or chills Resp denies SOB, increased work of breathing, or cough CV denies pedal edema or chest pain Abd complains of n/v for past few days Psych no changes in metal baseline other than less talkative Neuro no weakness or slurred speech - Pertinent findings PE General A&O x0, no acute distress, pt is alert however doesn't answer questions HEENT NCAT CV systolic murmur 3/, no pedal edema Resp CTA b/l Abd non tender Neuro will not follow commands, no facial drooping or obvious focal deficits - Plan Date/Time: 08/31/18 1141 I, Cuate Bates DO, have evaluated this patient and agree with findings/plan as outlined by recruiting internship resident. Pertinent changes/additions are listed here. 1. Acute on chronic hyponatremia - Likely related to poor PO intake on top of thiazide - Urine studies for FeNa and serum osm pending, will adjust plan of care if indicated - Gentle rehydration - Monitor BMP this afternoon and again in am - hold HCTZ, prn HTN meds 2. Possible UTI - most likely asymptomatic bacteruria, no concern for acute infection at this time. - Cultures pending 3. CAD - continue home meds 4. HTN - home meds other than HTZ 5. Alzheimer's Dementia - at baseline. Continue home meds 6. Hypothyroid - continue synthroid Addendum - Attending - Attending Attestation Date/Time: 08/31/18 1974 I personally evaluated the patient and discussed the management with Dr. Johnson/ Jana. I agree with the History, Examination, Assessment and Plan documented above with any addition or exceptions noted below. Patient here with nausea/vomiting, and mild change in mentation. Patient has poor appetite at baseline due to history of dementia. Brought to ER from her living facility. She is mildly dry on exam, normal vitals. Sodium level noted to be 125 changed from baseline low 130s. She is also hypochloremic. Urine has overall low specific gravity and urine sodium elevated. She is noted to be on both ACEi/ARB and HCTZ. Patient will be admitted for hyponatremia, suspect multifactorial in etiology. Will continue fluid hydration and trend serum sodium levels to avoid over correction. Suspect this is partially due to medication effect and so ACEi and HCTZ discontinued for the time being. Encourage PO solute intake. No other major abnormalities noted. Anticipate fairly quick turnaround and hopefully only 1-2 days hospitalization pending clinical course.
[2018-08-31] MEDS ORDERED: Ondansetron ODT 4 MG TAB PO PRN ×2 (12:10→12:22)
[2018-08-31] MEDS ORDERED: Ondansetron PF 4 MG/2 ML Vial IVP PRN (12:10)
[2018-08-31] MEDS ORDERED: Acetaminophen 325 MG TAB PO PRN (12:13)
[2018-08-31] MEDS ORDERED: Dextrose 5% in Water 1,000 ML IV PRN (12:22)
[2018-08-31] MEDS ORDERED: Dextrose 50% Abboject 50 ML SYRINGE SLOW IVP PRN (12:22)
[2018-08-31] MEDS ORDERED: Proctozone-HC 2.5% Cream 30 GM TUBE PR PRN (12:58)
[2018-08-31] MEDS ORDERED: cloNIDine 0.1 MG TAB PO PRN (12:58)
[2018-08-31] MEDS ORDERED: Milk Of Magnesia 30 ML UDCUP PO PRN (12:58)
[2018-08-31] MEDS ORDERED: Loperamide HCl 2 MG CAP PO PRN (12:58)
[2018-08-31] MEDS ORDERED: Bisacodyl 10 MG SUPP PR PRN (12:58)
[2018-08-31] MEDS ORDERED: Diabetic Tussin 200 MG/10 ML UDCUP PO PRN (12:58)
[2018-08-31] MEDS ORDERED: Calcium Carbonate 500 MG ChewTAB PO PRN (12:58)
[2018-08-31] MEDS ORDERED: HumaLOG 300 UNITS/3 ML VIAL SC PRN ×2 (13:00)
[2018-08-31] MEDS: Lactated Ringer's 1,000 ML IV SCH ×2 (13:09→23:59)
[2018-08-31] MEDS ORDERED: Cepastat Lozenges 1 LOZ PO PRN (13:15)
[2018-08-31 13:37] VITALS: BMI 25.3
[2018-08-31] MEDS: Carbidopa/Levodopa CR 50-200 mg Tablet PO SCH ×2 (16:36→20:45)
[2018-08-31 16:49] LABS: Magnesium 1.6 mg/dL (1.6-2.6); Phosphorus 3.4 mg/dL (2.3-4.7)
[2018-08-31 16:50] LABS: Anion Gap 13 mmol/L (10-20); BUN (Urea Nitrogen) 13 mg/dL (9.8-20.1); Calc. Creatinine Clearance 53 mL/min (70-130); Calcium 8.8 mg/dL (7.8-10.44); Carbon Dioxide 24 mmol/L (23-31); Chloride 93 mmol/L (98-107); Estimated GFR-MDRD 68; Glucose 78 mg/dL (83-110); Potassium 3.5 mmol/L (3.5-5.1); Sodium 126 mmol/L (136-145)
[2018-08-31 17:10] LABS: Thyroid Stimulating Hormone 0.4099 uIU/mL (0.35-4.94); Vitamin D, 25 Hydroxy 19.1 ng/ml (> 30.0)
[2018-08-31] MEDS ORDERED: Labetalol HCl 100 MG/20 ML VIAL SLOW IVP PRN (17:54)
[2018-08-31] MEDS: Melatonin 3 MG TAB PO SCH (20:45)
[2018-08-31] MEDS: Docusate 100 MG CAP PO SCH (20:45)
[2018-08-31] MEDS: Artificial Tear Sol 15 ML BOT EA EYE SCH (20:47)
[2018-08-31] MEDS: Nystatin Powder 15 GM BOT TOP SCH (20:47)
[2018-08-31] MEDS ORDERED: Donepezil HCl 10 MG TAB PO SCH (21:00)
[2018-08-31] MEDS ORDERED: Atorvastatin Calcium 40 MG TAB PO SCH (21:00)
--- NOTE | 2018-09-01 05:24 | PDOC.FM ---
- Subjective Subjective: Pt has no complaints overnight. She is AAOx3. She has poor intake per nurse, but she states she is not hungry. Her last bowel movement is on 08/30. - Objective MAR Reviewed: Yes Vital Signs & Weight: Vital Signs (12 hours) Temp Pulse Resp BP Pulse Ox 09/01/18 04:00 98.0 F 55 L 18 137/55 L 95 09/01/18 00:00 97.7 F 56 L 16 143/48 H 94 L 08/31/18 20:00 98.1 F 52 L 18 130/51 L 93 L Weight Weight 62.868 kg I&O: 08/30/18 08/31/18 09/01/18 06:59 06:59 06:59 Intake Total 670 Output Total 450 Balance 220 Result Diagrams: 09/01/18 05:53 09/01/18 05:54 Additional Labs: Urine culture still pending. EKG Reviewed by me: Yes (EKG on admission showed bradycardia with 1st degree heart block.) Phys Exam - Physical Examination HEENT: PERRLA, moist MMs Neck: no nodes, supple Respiratory: no wheezing, no rales, no rhonchi, clear to auscultation bilateral Cardiovascular: RRR Systolic murmur heard best over aortic valve with radiation to the neck. Gastrointestinal: soft, non-tender, positive bowel sounds Musculoskeletal: no edema, pulses present Neurological: non-focal, normal sensation, moves all 4 limbs Lymphatic: no nodes Psychiatric: normal affect, A&O x 3 Dx/Plan (1) Hyponatremia Code(s): E87.1 - HYPO-OSMOLALITY AND HYPONATREMIA Status: Acute (2) Asymptomatic bacteriuria Code(s): R82.71 - BACTERIURIA Status: Acute (3) Polypharmacy Code(s): Z79.899 - OTHER L[employer] DEF[employer] ARTILLERY CREWMEMBER (CURRENT) DRUG THERAPY Status: Chronic (4) Coronary artery disease Code(s): I25.10 - ATHSCL HEART DISEASE OF [place] CORONARY ARTERY W/O ANG PCTRS Status: Chronic Qualifiers: Coronary Disease-Associated Artery/Lesion type: bypass graft [place] vs. transplanted heart: [place] heart Associated angina: without angina Qualified Code(s): I25.810 - Atherosclerosis of coronary artery bypass graft(s) without angina pectoris (5) DM type 2 (diabetes mellitus, type 2) Status: Chronic Qualifiers: Diabetes mellitus buttermaker insulin use: with mcc use Diabetes mellitus complication status: with unspecified complications (6) Dyslipidemia Code(s): E78.5 - HYPERLIPIDEMIA, UNSPECIFIED Status: Chronic (7) Hypertension Code(s): I10 - ESSENTIAL (PRIMARY) HYPERTENSION Status: Chronic Qualifiers: Hypertension type: essential hypertension Qualified Code(s): I10 - Essential (primary) hypertension (8) Hypothyroidism Code(s): E03.9 - HYPOTHYROIDISM, UNSPECIFIED Status: Chronic Qualifiers: Hypothyroidism type: unspecified Qualified Code(s): E03.9 - Hypothyroidism , unspecified (9) Parkinsons disease Code(s): G20 - PARKINSON'S DISEASE Status: Chronic - Plan Plan: Mrs. Harp is a 83 [facility] with h/o dementia, CAD s/p CABG , and HTN who presents for symptomatic hyponatremia. 1. Symptomatic hyponatremia - Likely hypovolemic hyponatremia due to poor PO intake - Pt says n/v has resolved. Decreased alertness per family. - Na 125 (~132 at last discharge) - Will provide gentle hydration with LR @ 100ml/hr and recheck BMP checked this morning with Na up to 129 from 126. - Serum Osm-265, Urine Osm-530, and Urine Na-95. - Hold HCTZ at this time, and consider holding Lisinopril if Na does not begin to correct as expected. - Checking a lipid panel to rule out Hyperlipidemia as cause for hyponatremia. Hyponatremia can also be due to HCTZ use and resolution protracted. TSH is wnl. 2. Asymptomatic Bacteriuria - UA with 4-6 WBC and 1+ Bacteria. Likely 2/2 contraction and chronic bacteriuria. - Afebrile and without sxs at this time. WBC 10.9. - UCx still pending - Will monitor and provide Abx if sxs occur, UCx positive, or pt spikes fever. 3. Physical De-conditioning and poor PO intake - Chronic in nature. Providing ensures TID with meals. - Fall precautions. - PT/OT and violent crimes detective consulted, appreciate recs - Vit D- 19.1 is low. Will replace. 4. Polypharmacy - We think this may be the cause of her AMS on admission. - Discussed with family and will hold Aricept, Clonidine, and Atorvastatin along with HCTZ and Lisinopril. We will also decrease the dose of her Sinemet. 5. HTN - Continue home Cozaar and Lisinopril at this time. Hold HCTZ. 6. Hypothyroidism - TSH is wnl. - Continue home med: levothyroxine 7. Dementia/Parkinsons - continue home medication: Aricept 8. DM II - Placed on mild SS. Will check BG ACHS. Pt is controlled with BG <110, so will continue this protocol. 9. CAD with CHF - Volume depleted at this time. Will provide gently hydration per hyponatremia but monitor volume status closely. - Heart healthy diet with fluid restriction of 2000ml daily. Diet: Heart healthy with ensure TID with meals and 2000ml fluid restriction. DVT Prophylaxis: Lovenox Code Status: DNR - discussed with patient's daughter at bedside who is MPoA. Dispo: Admitted to medical floor of further hydration, increased PO, and correction of Na. Will monitor closely. Anticipate hospitalization >2 days.
[2018-09-01] MEDS: Levothyroxine Sodium 100 MCG TAB PO SCH (05:53)
[2018-09-01 06:19] LABS: #Eosinphils 0.1 thou/uL (0.0-0.7); #Lymphocytes 0.7 thou/uL (1.20-3.40); #Monocytes 0.9 thou/uL (0.11-0.59); #Neutrophils 6.8 thou/uL (1.40-6.50); %Basophils 0.4 % (0.0-1.0); %Eosinophils 0.9 % (0.0-10.0); %Lymphocytes 7.7 % (21.0-51.0); %Monocytes 10.5 % (0.0-10.0); %Neutrophils 80.5 % (42.0-75.0); Hemoglobin 8.9 g/dL (12.0-16.0); Mean Corpuscular HGB CONC 31.2 g/dL (32.0-36.0); Mean Corpuscular Hemoglobin 26.5 pg (27.0-31.0); Mean Corpuscular Volume 85.1 fL (78.0-98.0); Mean Platelet Volume 10.1 fL (7.4-10.4); Platelet Count 88 thou/uL (130-400); RBC Distribution Width 14.7 % (11.5-14.5); Red Blood Cell (RBC) Count 3.35 mill/uL (4.20-5.40); White Blood Cell (WBC) Count 8.4 thou/uL (4.8-10.8)
[2018-09-01 06:38] LABS: Anion Gap 12 mmol/L (10-20); BUN (Urea Nitrogen) 11 mg/dL (9.8-20.1); Calc. Creatinine Clearance 54 mL/min (70-130); Calcium 8.7 mg/dL (7.8-10.44); Carbon Dioxide 26 mmol/L (23-31); Chloride 94 mmol/L (98-107); Estimated GFR-MDRD 69; Glucose 67 mg/dL (83-110); Potassium 3.3 mmol/L (3.5-5.1); Sodium 129 mmol/L (136-145)
[2018-09-01] MEDS: FLUoxetine HCl 20 MG CAP PO SCH (08:29)
[2018-09-01] MEDS: Folic Acid 1 MG TAB PO SCH (08:34)
[2018-09-01] MEDS: Losartan 25 MG TAB PO SCH (08:34)
[2018-09-01] MEDS: Multivitamin W/ Minerals 1 TAB PO SCH (08:34)
[2018-09-01] MEDS: Aspirin 81 mg Enteric Coated Tablet PO SCH (08:35)
[2018-09-01] MEDS: Carbidopa/Levodopa CR 50-200 mg Tablet PO SCH (08:35)
[2018-09-01] MEDS: Artificial Tear Sol 15 ML BOT EA EYE SCH ×2 (08:36→20:25)
[2018-09-01] MEDS: Docusate 100 MG CAP PO SCH ×2 (08:36→20:27)
[2018-09-01] MEDS: Polyethylene Glycol 3350 17 GM Packet PO SCH (08:37)
[2018-09-01] MEDS: Enoxaparin Sodium 40 MG/0.4 ML SYRINGE SC SCH (08:37)
[2018-09-01] MEDS: Bupropion 150 MG XL TAB PO SCH (08:38)
[2018-09-01] MEDS: Lactated Ringer's 1,000 ML IV SCH ×2 (08:44→18:39)
[2018-09-01] MEDS: Nystatin Powder 15 GM BOT TOP SCH ×2 (08:46→20:27)
[2018-09-01] MEDS ORDERED: Cholecalciferol (Vitamin D3) 400 UNITS TAB PO SCH (09:00)
[2018-09-01] MEDS ORDERED: Lisinopril 20 MG TAB PO SCH (09:00)
[2018-09-01] MEDS ORDERED: Ubidecarenone 50 MG CAP PO SCH (09:00)
[2018-09-01] MEDS ORDERED: Nitroglycerin 0.2mg/Hour PATCH TD SCH (09:00)
[2018-09-01] MEDS ORDERED: cloNIDine 0.1 MG TAB PO SCH (09:00)
[2018-09-01] MEDS: Ondansetron ODT 4 MG TAB PO PRN (09:24)
--- NOTE | 2018-09-01 12:21 | PRG ---
DATE OF SERVICE: 09/01/2018 SUBJECTIVE: Ms. Harp is an 83-year-old [facility] patient, who was admitted with mental confusion and hyponatremia. She was on 31 medications at the [facility]. I had a long discussion this morning with the residents and the family about the need to reduce her medications to those that are absolutely necessary versus those that are nice to take. We will begin to reduce the patient's medication load with the blessing of the family. In the event already this morning after stopping many of her medications, she is much more lucid. Her sodium has improved to 129 with a slow lactated Ringer's infusion as well as mild fluid restriction. We will continue to monitor this until it gets above at least 130 and her sensorium returns more to her baseline. Job ID: [id number]
[2018-09-01 14:28] LABS: Cardiac Risk 3.1 (Less than 4.5)
[2018-09-01] MEDS ORDERED: Carbidopa/Levodopa 10-100 mg Tablet PO SCH (15:00)
[2018-09-01] MEDS: Carbidopa/Levodopa 10-100 mg Tablet PO SCH ×2 (16:04→20:26)
[2018-09-01] MEDS: Melatonin 3 MG TAB PO SCH (20:27)
[2018-09-02] MEDS: Lactated Ringer's 1,000 ML IV SCH ×2 (04:21→14:33)
[2018-09-02 04:33] LABS: #Eosinphils 0.2 thou/uL (0.0-0.7); #Lymphocytes 0.9 thou/uL (1.20-3.40); #Monocytes 1.1 thou/uL (0.11-0.59); #Neutrophils 6.7 thou/uL (1.40-6.50); %Basophils 0.2 % (0.0-1.0); %Lymphocytes 10.4 % (21.0-51.0); %Monocytes 12.5 % (0.0-10.0); %Neutrophils 74.9 % (42.0-75.0); Hemoglobin 8.9 g/dL (12.0-16.0); Mean Corpuscular HGB CONC 30.6 g/dL (32.0-36.0); Mean Corpuscular Hemoglobin 24.7 pg (27.0-31.0); Mean Corpuscular Volume 80.6 fL (78.0-98.0); Platelet Count 86 thou/uL (130-400); RBC Distribution Width 13.2 % (11.5-14.5); Red Blood Cell (RBC) Count 3.59 mill/uL (4.20-5.40); White Blood Cell (WBC) Count 8.9 thou/uL (4.8-10.8)
[2018-09-02 04:37] LABS: Anion Gap 8 mmol/L (10-20); BUN (Urea Nitrogen) 8 mg/dL (9.8-20.1); Calc. Creatinine Clearance 55 mL/min (70-130); Calcium 9.2 mg/dL (7.8-10.44); Carbon Dioxide 33 mmol/L (23-31); Chloride 96 mmol/L (98-107); Estimated GFR-MDRD 71; Glucose 79 mg/dL (83-110); Potassium 4.1 mmol/L (3.5-5.1); Sodium 133 mmol/L (136-145)
[2018-09-02] MEDS: Levothyroxine Sodium 100 MCG TAB PO SCH (05:15)
--- NOTE | 2018-09-02 05:33 | PDOC.FM ---
- Subjective Subjective: She has no complaints this morning. She is not eating well and complains food has no taste. - Objective MAR Reviewed: Yes Vital Signs & Weight: Vital Signs (12 hours) Temp Pulse Resp BP Pulse Ox 09/02/18 04:00 97.9 F 43 L 20 175/61 H 93 L 09/02/18 00:43 52 L 173/64 H 09/02/18 00:00 98.0 F 57 L 20 183/65 H 92 L 09/01/18 20:00 97.9 F 44 L 20 154/45 H 97 Weight Admit Weight 62.868 kg Weight 62.868 kg I&O: 08/31/18 09/01/18 09/02/18 06:59 06:59 06:59 Intake Total 670 930 Output Total 450 800 Balance 220 130 Result Diagrams: 09/02/18 04:03 09/02/18 04:03 Phys Exam - Physical Examination HEENT: PERRLA, moist MMs Neck: no nodes Respiratory: clear to auscultation bilateral Cardiovascular: RRR (systolic flow murmur) Gastrointestinal: soft, non-tender Musculoskeletal: no edema, pulses present Neurological: non-focal Lymphatic: no nodes Psychiatric: normal affect Skin: no rash Dx/Plan (1) Hyponatremia Code(s): E87.1 - HYPO-OSMOLALITY AND HYPONATREMIA Status: Acute (2) Asymptomatic bacteriuria Code(s): R82.71 - BACTERIURIA Status: Acute (3) Polypharmacy Code(s): Z79.899 - OTHER CUSTODIAL (CURRENT) DRUG THERAPY Status: Chronic (4) Coronary artery disease Code(s): I25.10 - ATHSCL HEART DISEASE OF [place] CORONARY ARTERY W/O ANG PCTRS Status: Chronic Qualifiers: Coronary Disease-Associated Artery/Lesion type: bypass graft [place] vs. transplanted heart: [place] heart Associated angina: without angina Qualified Code(s): I25.810 - Atherosclerosis of coronary artery bypass graft(s) without angina pectoris (5) DM type 2 (diabetes mellitus, type 2) Status: Chronic Qualifiers: Diabetes mellitus intermodal owner operator truck driver insulin use: with intermodal owner operator truck driver use Diabetes mellitus complication status: with unspecified complications (6) Dyslipidemia Code(s): E78.5 - HYPERLIPIDEMIA, UNSPECIFIED Status: Chronic (7) Hypertension Code(s): I10 - ESSENTIAL (PRIMARY) HYPERTENSION Status: Chronic Qualifiers: Hypertension type: essential hypertension Qualified Code(s): I10 - Essential (primary) hypertension (8) Hypothyroidism Code(s): E03.9 - HYPOTHYROIDISM, UNSPECIFIED Status: Chronic Qualifiers: Hypothyroidism type: unspecified Qualified Code(s): E03.9 - Hypothyroidism , unspecified (9) Parkinsons disease Code(s): G20 - PARKINSON'S DISEASE Status: Chronic - Plan Plan: Mrs. Harp is a 83 [facility] resident with h/o dementia, CAD s/p CABG , and HTN who presents for symptomatic hyponatremia. 1. Symptomatic hyponatremia - Likely hypovolemic hyponatremia due to poor PO intake - Pt says n/v has resolved. - Na 133 today up from 125. (~132 at last discharge) - Gentle hydration with LR @ 100ml/hr. - Serum Osm-265, Urine Osm-530, and Urine Na-95. Most likely volume depletion and HCTZ use. - Hold HCTZ at this time, and consider holding Lisinopril if Na does not begin to correct as expected. - Lipid panel is wnl ruling out Hyperlipidemia as cause for hyponatremia. 2. Asymptomatic Bacteriuria - UA with 4-6 WBC and 1+ Bacteria. Likely 2/2 contraction and chronic bacteriuria. - Afebrile and without sxs at this time. WBC 8.9. - UCx no growth at 24 days. - Will monitor and provide Abx if sxs occur, UCx positive, or pt spikes fever. 3. Physical De-conditioning and poor PO intake - Chronic in nature. Providing ensures TID with meals. - Fall precautions. - PT/OT and salesperson furs consulted, appreciate recs - Referral Clerk recommended Mighty shake with meals and mechanically soft diet. - Vit D- 19.1 is low. Being replaced 4. Polypharmacy - We think this may be the cause of her AMS on admission. - Discussed with family and will hold Aricept, Clonidine, and Atorvastatin along with HCTZ and Lisinopril. We will also decrease the dose of her Sinemet. - Decreased Prozac from 80 mg to 40 mg 5. Anemia/Thrombocytopenia - Hgb: 8.9, Down from 9.8 on admission. MCV is 80. Plts- 86. - We ordered iron was low at 20, TIBC was 290 low normal, Ferritin was low normal at 18.33, retic count was elevated 2.6, folate is still pending, and b12 is 788. - We started iron for likely anemia. 7. HTN - Continue home Cozaar and Lisinopril at this time. Held HCTZ. 6. Hypothyroidism - TSH is wnl. - Continue home med: levothyroxine 7. Dementia/Parkinsons - We are holding the Aricept because we believe it is related to her polypharmacy and caused disorientation. - Her Sinmet was lowered from 0.5 tab (50/200) TID to 0.5 tab (10/100) TID. 8. DM II - Placed on mild SS. Will check BG ACHS. Pt is controlled with BG <110, so will continue this protocol. 9. CAD with CHF - Volume depleted at this time. Will provide gently hydration per hyponatremia but monitor volume status closely. - Heart healthy diet with fluid restriction of 2000ml daily.\ - Dieticians added on Mighty Shakes with meals, we appreciate recs. Diet: Regular diet that is mechanically soft. Mighty shakes with meals. DVT Prophylaxis: Lovenox Code Status: DNR - discussed with patient's daughter at bedside who is MPoA. Dispo: Will check for Na increase in the morning and see if folate is back. We encouraged po intake today and hope discontinuation of meds will increase appetite. Likely to D/c tomorrow. Contacted case management for d/c planning.
[2018-09-02] MEDS: Artificial Tear Sol 15 ML BOT EA EYE SCH ×2 (08:29→20:10)
[2018-09-02] MEDS: Losartan 25 MG TAB PO SCH (08:30)
[2018-09-02] MEDS: Multivitamin W/ Minerals 1 TAB PO SCH (08:30)
[2018-09-02] MEDS: FLUoxetine HCl 20 MG CAP PO SCH ×2 (08:30→09:48)
[2018-09-02] MEDS: Bupropion 150 MG XL TAB PO SCH (08:31)
[2018-09-02] MEDS: Enoxaparin Sodium 40 MG/0.4 ML SYRINGE SC SCH (08:31)
[2018-09-02] MEDS: Docusate 100 MG CAP PO SCH ×2 (08:31→20:11)
[2018-09-02] MEDS: Carbidopa/Levodopa 10-100 mg Tablet PO SCH ×3 (08:31→20:11)
[2018-09-02] MEDS: Folic Acid 1 MG TAB PO SCH (08:31)
[2018-09-02] MEDS: Aspirin 81 mg Enteric Coated Tablet PO SCH (08:31)
[2018-09-02] MEDS: Nystatin Powder 15 GM BOT TOP SCH ×2 (08:32→20:11)
[2018-09-02] MEDS: Polyethylene Glycol 3350 17 GM Packet PO SCH (08:32)
[2018-09-02 09:59] LABS: Reticulocyte Count 2.6 % (0.5-1.5)
--- NOTE | 2018-09-02 13:14 | PRG ---
DATE OF SERVICE: 09/02/2018 Ms. Harp is not eating well. She is only taking very small bites, even the food that is brought in by her family. Otherwise, she is awake, alert, and her sensorium is much improved since stopping some of her medications and correcting her hyponatremia. The lack of appetite is likely related to her dementia and age and will likely continue to be a problem in the weeks to months to come. I would not put her on any type of dietary restrictions. Her iron studies seem consistent with a mixed picture that includes anemia of chronic disease as well as iron deficiency. She may benefit from some iron replacement to a ferritin level of 40 to 50. B12 levels were normal. Job ID: [id number]
--- NOTE | 2018-09-02 13:33 | PRG ---
DATE OF SERVICE: 09/02/2018 Ms. Harp is in no distress. She is sitting quietly in bed in the presence of her family. She is not eating well, taking only very small bites of food even brought in by her family. I suspect that this will be a chronic issue in the weeks and months to come. In any event, we did order some iron studies given that she also has a hemoglobin of 8.9 with a normal MCV of 80.6. Her studies seem to be a mixed picture which includes anemia of chronic disease and iron deficiency. Her B12 levels seem fine. It may be a benefit to replace her . Job ID: [id number]
[2018-09-02] MEDS: Ferrous Sulfate 325 MG TAB PO SCH (16:55)
--- NOTE | 2018-09-02 17:56 | PDOC.EVN ---
Event Note - Event Note Event Note: Called to patient's room at 1730 today. Patient's family noticed that patient's left leg is spasming for past 20 minutes. Spasm occurs on/off in left toes causing muscles to twitch in left leg, lasting about 20 seconds. Patient reports that during the spasm she has a burning sensation in her calf and stinging sensation in her toes. This event was noticed 2 times during my exam. No swelling or tenderness to palpation. No calf tenderness. Patient reports she has not eaten today. Vitals: BP 181/63, Pulse 49 (family reports pulse in 40s for past couple hours) Lower extremities: Spasm in left toes 1,2 & 3. No swelling or tenderness to palpation. A&P: Patient stable. Will check BMP, Magnesium, & Phosphorus.
[2018-09-02 18:30] LABS: Anion Gap 11 mmol/L (10-20); BUN (Urea Nitrogen) 6 mg/dL (9.8-20.1); Calc. Creatinine Clearance 62 mL/min (70-130); Calcium 8.7 mg/dL (7.8-10.44); Carbon Dioxide 27 mmol/L (23-31); Chloride 93 mmol/L (98-107); Estimated GFR-MDRD 81; Glucose 78 mg/dL (83-110); Magnesium 1.5 mg/dL (1.6-2.6); Phosphorus 2.4 mg/dL (2.3-4.7); Potassium 3.2 mmol/L (3.5-5.1); Sodium 128 mmol/L (136-145)
[2018-09-02] MEDS: Melatonin 3 MG TAB PO SCH (20:11)
[2018-09-02] MEDS ORDERED: Magnesium 2 GM/50 ML 2 GM in Premix Bag 1 BAG IVPB SCH (22:30)
[2018-09-02] MEDS: Potassium Chloride 10 MEQ/100 ML PREMIX BAG IVPB SCH (22:42)
[2018-09-03] MEDS: Potassium Chloride 10 MEQ/100 ML PREMIX BAG IVPB SCH ×3 (01:16→04:14)
[2018-09-03] MEDS: Lactated Ringer's 1,000 ML IV SCH (01:19)
[2018-09-03] MEDS: Acetaminophen 325 MG TAB PO PRN ×2 (01:27→19:54)
--- NOTE | 2018-09-03 04:56 | PDOC.FM ---
- Subjective Subjective: Had left arm pain due to potassium replacement. She still isn't eating. Last BM was 09/01. - Objective MAR Reviewed: Yes Vital Signs & Weight: Vital Signs (12 hours) Temp Pulse Resp BP Pulse Ox 09/02/18 20:00 98.2 F 48 L 20 174/61 H 92 L Weight Admit Weight 62.868 kg Weight 62.868 kg I&O: 09/01/18 09/02/18 09/03/18 06:59 06:59 06:59 Intake Total 670 2230 200 Output Total 450 2000 Balance 220 230 200 Result Diagrams: 09/03/18 06:08 09/03/18 06:08 Dx/Plan (1) Hyponatremia Code(s): E87.1 - HYPO-OSMOLALITY AND HYPONATREMIA Status: Acute (2) Asymptomatic bacteriuria Code(s): R82.71 - BACTERIURIA Status: Acute (3) Polypharmacy Code(s): Z79.899 - OTHER BRIDAL STYLIST SALES CONSULTANT (CURRENT) DRUG THERAPY Status: Chronic (4) Coronary artery disease Code(s): I25.10 - ATHSCL HEART DISEASE OF [place] CORONARY ARTERY W/O ANG PCTRS Status: Chronic Qualifiers: Coronary Disease-Associated Artery/Lesion type: bypass graft [place] vs. transplanted heart: [place] heart Associated angina: without angina Qualified Code(s): I25.810 - Atherosclerosis of coronary artery bypass graft(s) without angina pectoris (5) DM type 2 (diabetes mellitus, type 2) Status: Chronic Qualifiers: Diabetes mellitus custodial insulin use: with technician terminal and repeater use Diabetes mellitus complication status: with unspecified complications (6) Dyslipidemia Code(s): E78.5 - HYPERLIPIDEMIA, UNSPECIFIED Status: Chronic (7) Hypertension Code(s): I10 - ESSENTIAL (PRIMARY) HYPERTENSION Status: Chronic Qualifiers: Hypertension type: essential hypertension Qualified Code(s): I10 - Essential (primary) hypertension (8) Hypothyroidism Code(s): E03.9 - HYPOTHYROIDISM, UNSPECIFIED Status: Chronic Qualifiers: Hypothyroidism type: unspecified Qualified Code(s): E03.9 - Hypothyroidism , unspecified (9) Parkinsons disease Code(s): G20 - PARKINSON'S DISEASE Status: Chronic - Plan Plan: 1. Symptomatic hyponatremia - Likely hypovolemic hyponatremia due to poor PO intake - Pt says n/v has resolved. - Na 130 today up from 125 at admission but 133 yesterday. (~132 at last discharge) - D/C Gentle hydration with LR @ 100ml/hr. - Serum Osm-265, Urine Osm-530, and Urine Na-95. Most likely volume depletion and HCTZ use. - Hold HCTZ at this time, and consider holding Lisinopril if Na does not begin to correct as expected. - Lipid panel is wnl ruling out Hyperlipidemia as cause for hyponatremia. - K+ is 3.6 and Mag is low, after replacement. 2. Asymptomatic Bacteriuria - UA with 4-6 WBC and 1+ Bacteria. Likely 2/2 contraction and chronic bacteriuria. - Afebrile and without sxs at this time. WBC 8.9. - UCx no growth at 24 days. - Will monitor and provide Abx if sxs occur, UCx positive, or pt spikes fever. 3. Physical De-conditioning and poor PO intake - Chronic in nature. - Fall precautions. - PT/OT and offset label rewinder consulted, appreciate recs. Family asked to D/C PT yesterday. - Head Housekeeper recommended Mighty shake with meals and mechanically soft diet. Pt is still not eating. - Will discuss Palliative care with family to establish goals of care. - Vit D- 19.1 is low. Being replaced 4. Polypharmacy - We think this may be the cause of her AMS on admission. - Discussed with family and will hold Aricept, Clonidine, and Atorvastatin along with HCTZ and Lisinopril. We will also decrease the dose of her Sinemet. - Decreased Prozac from 80 mg to 40 mg 5. Anemia/Thrombocytopenia - Hgb: 9.1, Down from 9.8 on admission, but believed to be dilutional - We ordered iron was low at 20, TIBC was 290 low normal, Ferritin was low normal at 18.33, retic count was elevated 2.6, folate is still pending, and b12 is 788. - We started iron for likely anemia. 7. HTN - Continue home Cozaar and Lisinopril at this time. Held HCTZ. - Started on Norvasc after trial off meds to SBPs in 170-180s 6. Hypothyroidism - TSH is wnl. - Continue home med: levothyroxine 7. Dementia/Parkinsons - We are holding the Aricept because we believe it is related to her polypharmacy and caused disorientation. - Her Sinmet was lowered from 0.5 tab (50/200) TID to 0.5 tab (10/100) TID. 8. DM II - Placed on mild SS. Will check BG ACHS. Pt is controlled with BG <110, so will continue this protocol. 9. CAD with CHF - D/C fluids this morning and no signs of CP or SOB. Diet: Regular diet that is mechanically soft. Mighty shakes with meals. DVT Prophylaxis: Lovenox Code Status: DNR - discussed with patient's daughter at bedside who is MPoA. Dispo: We encouraged po intake today and hope discontinuation of meds will increase appetite. Will D/C this afternoon. Case management is coordinating d/ c planning; we appreciate their help. Consulted Palliative Care today, will d/c with their recs.
[2018-09-03] MEDS: Levothyroxine Sodium 100 MCG TAB PO SCH (05:43)
[2018-09-03 07:09] LABS: Anion Gap 10 mmol/L (10-20); BUN (Urea Nitrogen) 5 mg/dL (9.8-20.1); Calc. Creatinine Clearance 63 mL/min (70-130); Calcium 8.7 mg/dL (7.8-10.44); Carbon Dioxide 29 mmol/L (23-31); Chloride 95 mmol/L (98-107); Estimated GFR-MDRD 83; Glucose 74 mg/dL (83-110); Potassium 3.6 mmol/L (3.5-5.1); Sodium 130 mmol/L (136-145)
[2018-09-03 07:30] LABS: Hep C IgG Ab Non-Reactive (NonReactive); Hep C Index 0.05 S/CO (0-0.79)
[2018-09-03 07:44] LABS: #Eosinphils 0.1 thou/uL (0.0-0.7); #Lymphocytes 0.8 thou/uL (1.20-3.40); #Monocytes 1.1 thou/uL (0.11-0.59); #Neutrophils 7.1 thou/uL (1.40-6.50); %Eosinophils 1.1 % (0.0-10.0); %Lymphocytes 8.5 % (21.0-51.0); %Monocytes 12.3 % (0.0-10.0); %Neutrophils 78.1 % (42.0-75.0); Hemoglobin 9.1 g/dL (12.0-16.0); Hypochromia SLIGHT = 6-15 cells (100X) (0-5/hpf); Large Platelets SLIGHT; MDiff Complete? YES; Mean Corpuscular HGB CONC 31.3 g/dL (32.0-36.0); Mean Corpuscular Hemoglobin 25.3 pg (27.0-31.0); Mean Corpuscular Volume 80.9 fL (78.0-98.0); Mean Platelet Volume 10.2 fL (7.4-10.4); Platelet Clumps SLIGHT; Platelet Morphology Comment PLT clumps seen-LOW; Polychromasia MODERATE = 3-4 cells (100X) (0-2/hpf); RBC Distribution Width 13.1 % (11.5-14.5); Red Blood Cell (RBC) Count 3.61 mill/uL (4.20-5.40)
[2018-09-03] MEDS: Docusate 100 MG CAP PO SCH ×2 (09:00→19:54)
[2018-09-03] MEDS: Losartan 25 MG TAB PO SCH ×2 (09:00→09:07)
[2018-09-03] MEDS: Ferrous Sulfate 325 MG TAB PO SCH ×2 (09:01→16:45)
[2018-09-03] MEDS: Carbidopa/Levodopa 10-100 mg Tablet PO SCH ×3 (09:01→19:54)
[2018-09-03] MEDS: FLUoxetine HCl 20 MG CAP PO SCH (09:01)
[2018-09-03] MEDS: Multivitamin W/ Minerals 1 TAB PO SCH (09:01)
[2018-09-03] MEDS: Bupropion 150 MG XL TAB PO SCH (09:01)
[2018-09-03] MEDS: Folic Acid 1 MG TAB PO SCH (09:01)
[2018-09-03] MEDS: Aspirin 81 mg Enteric Coated Tablet PO SCH (09:01)
[2018-09-03] MEDS: Polyethylene Glycol 3350 17 GM Packet PO SCH (09:02)
[2018-09-03] MEDS: Enoxaparin Sodium 40 MG/0.4 ML SYRINGE SC SCH ×2 (09:02→10:01)
[2018-09-03] MEDS: Artificial Tear Sol 15 ML BOT EA EYE SCH ×2 (09:03→19:56)
[2018-09-03] MEDS: Nystatin Powder 15 GM BOT TOP SCH ×2 (09:03→19:56)
[2018-09-03] MEDS: Amlodipine 5 MG TAB PO SCH (09:29)
--- NOTE | 2018-09-03 12:53 | PRG ---
DATE OF SERVICE: 09/03/2018 Ms. Harp is in no distress this morning. In fact, she is smiling and appears at ease. There is no distress. She still is not eating well. We will obtain a palliative consult with the family's blessing. The family is being very reasonable about letting Ms. Harp' partake of a diet of her choice in an attempt to stimulate her appetite. She is nearing time for discharge to a skilled facility. Job ID: [id number]
[2018-09-03] MEDS: hydrALAZINE 20 MG/ML VIAL SLOW IVP PRN (13:08)
[2018-09-03] MEDS: Ondansetron ODT 4 MG TAB PO PRN (13:35)
[2018-09-03 15:11] LABS: Folate,Hemolysate >620.0 ng/mL (Not Estab.); Hematocrit 26.9 % (34.0-46.6); RBC Folate Test Component Greater than 2305 ng/mL (>498)
[2018-09-03] MEDS: Melatonin 3 MG TAB PO SCH (19:54)
--- NOTE | 2018-09-03 22:03 | PDOC.FM ---
- Subjective Subjective: She ate 2-3 bites of each meal. Had a BM this am. No complaints. - Objective MAR Reviewed: Yes Vital Signs & Weight: Vital Signs (12 hours) Temp Pulse Resp BP BP Pulse Ox 09/03/18 16:20 98.1 F 54 L 16 154/58 H 97 09/03/18 13:35 54 L 16 154/62 H 96 09/03/18 13:33 53 L 16 153/62 H 96 09/03/18 13:08 54 L 185/56 H 09/03/18 12:00 98.2 F 53 L 18 198/68 H 94 L Weight Admit Weight 62.868 kg Weight 62.868 kg I&O: 09/02/18 09/03/18 09/04/18 06:59 06:59 06:59 Intake Total 2230 200 680 Output Total 2000 500 Balance 230 200 180 Result Diagrams: 09/03/18 06:08 09/03/18 06:08 Phys Exam - Physical Examination Constitutional: NAD HEENT: PERRLA, moist MMs Neck: supple Respiratory: clear to auscultation bilateral Cardiovascular: RRR Gastrointestinal: soft, non-tender Musculoskeletal: no edema, pulses present Neurological: non-focal Lymphatic: no nodes Psychiatric: normal affect Deviation from normal: AAOx1 Skin: no rash Dx/Plan (1) Hyponatremia Code(s): E87.1 - HYPO-OSMOLALITY AND HYPONATREMIA Status: Acute (2) Asymptomatic bacteriuria Code(s): R82.71 - BACTERIURIA Status: Acute (3) Polypharmacy Code(s): Z79.899 - OTHER CELL INSPECTOR (CURRENT) DRUG THERAPY Status: Chronic (4) Coronary artery disease Code(s): I25.10 - ATHSCL HEART DISEASE OF [place] CORONARY ARTERY W/O ANG PCTRS Status: Chronic Qualifiers: Coronary Disease-Associated Artery/Lesion type: bypass graft [place] vs. transplanted heart: [place] heart Associated angina: without angina Qualified Code(s): I25.810 - Atherosclerosis of coronary artery bypass graft(s) without angina pectoris (5) DM type 2 (diabetes mellitus, type 2) Status: Chronic Qualifiers: Diabetes mellitus oil heaterman insulin use: with prison use Diabetes mellitus complication status: with unspecified complications (6) Dyslipidemia Code(s): E78.5 - HYPERLIPIDEMIA, UNSPECIFIED Status: Chronic (7) Hypertension Code(s): I10 - ESSENTIAL (PRIMARY) HYPERTENSION Status: Chronic Qualifiers: Hypertension type: essential hypertension Qualified Code(s): I10 - Essential (primary) hypertension (8) Hypothyroidism Code(s): E03.9 - HYPOTHYROIDISM, UNSPECIFIED Status: Chronic Qualifiers: Hypothyroidism type: unspecified Qualified Code(s): E03.9 - Hypothyroidism , unspecified (9) Parkinsons disease Code(s): G20 - PARKINSON'S DISEASE Status: Chronic - Plan Plan: 83 yo CF with history of Hypertension, Parkinsons, Dementia, CAD, and CHF presented with hypovolemic hyponatremia and is now not eating. 1. Symptomatic hyponatremia - Likely hypovolemic hyponatremia due to poor PO intake - Na 130 yesterday. Improved from 125 on admission. She was admitted not to long ago for same issue. Sits around this level @ last d/c 132. - Serum Osm-265, Urine Osm-530, and Urine Na-95. Most likely volume depletion and HCTZ use. - Hold HCTZ at this time, and consider holding Lisinopril if Na does not begin to correct as expected. - Lipid panel is wnl ruling out Hyperlipidemia as cause for hyponatremia. - K+ is 3.6 and Mag is low, after replacement. 2. Asymptomatic Bacteriuria - UA with 4-6 WBC and 1+ Bacteria. Likely 2/2 contraction and chronic bacteriuria. - Afebrile and without sxs at this time. WBC 8.9. - UCx no growth at 24 days. - Will monitor and provide Abx if sxs occur, UCx positive, or pt spikes fever. Nothing has developed thus far. 3. Physical De-conditioning and poor PO intake - Chronic in nature. - Fall precautions. - PT/OT and nurse orthopedic consulted, appreciate recs. Family asked to D/C PT yesterday. - Carry In Worker recommended Mighty shake with meals and mechanically soft diet. Pt ate a couple of bites of each meal. - Vit D- 19.1 is low. Being replaced - PC discussed goals of care yesterday. Pt is going back to [facility] with either [facility] or [facility]; will meet with reps today to decide for d/ c. 4. Polypharmacy - We think this may be the cause of her AMS on admission. - Discussed with family and will hold Aricept, Clonidine, and Atorvastatin along with HCTZ and Lisinopril. We will also decrease the dose of her Sinemet. - Decreased Prozac from 80 mg to 40 mg - She is much improved and has been much more alert the past couple of days. 5. Anemia/Thrombocytopenia - Hgb: 9.1, Down from 9.8 on admission, but believed to be dilutional - We ordered iron was low at 20, TIBC was 290 low normal, Ferritin was low normal at 18.33, retic count was elevated 2.6, folate is still pending, and b12 is 788. - We started iron for likely anemia. 7. HTN - BP and pulse was low yesterday, so held her medications. Today she has systolic hypertension, but low pulse. - Started Norvasc yesterday. Will cover with prns till it takes effect. 6. Hypothyroidism - TSH is wnl. - Continue home med: levothyroxine 7. Dementia/Parkinsons - We are holding the Aricept because we believe it is related to her polypharmacy and caused disorientation. - Her Sinmet was lowered from 0.5 tab (50/200) TID to 0.5 tab (10/100) TID. 8. DM II - Placed on mild SS. Will check BG ACHS. Pt is controlled with BG <110, so will continue this protocol. 9. CAD with CHF - D/C fluids this morning and no signs of CP or SOB. Diet: Regular diet that is mechanically soft. Mighty shakes with meals. DVT Prophylaxis: Lovenox Code Status: DNR - discussed with patient's daughter at bedside who is MPoA. Dispo: Will get finally recommendations from PC and d/c today to [place] with either [facility] with the help of CM.
[2018-09-04] MEDS: Levothyroxine Sodium 100 MCG TAB PO SCH (05:09)
[2018-09-04] MEDS: Docusate 100 MG CAP PO SCH (09:02)
[2018-09-04] MEDS: Aspirin 81 mg Enteric Coated Tablet PO SCH (09:03)
[2018-09-04] MEDS: Polyethylene Glycol 3350 17 GM Packet PO SCH (09:03)
[2018-09-04] MEDS: Losartan 25 MG TAB PO SCH (09:03)
[2018-09-04] MEDS: Amlodipine 5 MG TAB PO SCH (09:03)
[2018-09-04] MEDS: FLUoxetine HCl 20 MG CAP PO SCH (09:03)
[2018-09-04] MEDS: Bupropion 150 MG XL TAB PO SCH (09:03)
[2018-09-04] MEDS: Multivitamin W/ Minerals 1 TAB PO SCH (09:03)
[2018-09-04] MEDS: Carbidopa/Levodopa 10-100 mg Tablet PO SCH ×2 (09:03→14:49)
[2018-09-04] MEDS: Folic Acid 1 MG TAB PO SCH (09:03)
[2018-09-04] MEDS: Ferrous Sulfate 325 MG TAB PO SCH (09:03)
[2018-09-04] MEDS: Artificial Tear Sol 15 ML BOT EA EYE SCH (09:04)
[2018-09-04] MEDS: Nystatin Powder 15 GM BOT TOP SCH (09:04)
[2018-09-04] MEDS: Enoxaparin Sodium 40 MG/0.4 ML SYRINGE SC SCH (10:43)
--- NOTE | 2018-09-04 12:00 | PRG ---
DATE OF SERVICE: 09/04/2018 Ms. Harp looks fine this morning. She is much more alert, talkative, and interactive. She appears to have had a hypoactive delirium from polypharmacy, which has resolved with stopping many of her medications. Appetite is still an issue, and we will perhaps try a stimulant such as cyproheptadine or Megace in the event she will be discharged today to an assisted care living facility. Job ID: [id number]
[2018-09-04 12:36] VITALS: TEMP 98
[2018-09-04] MEDS: hydrALAZINE 20 MG/ML VIAL SLOW IVP PRN (12:38)
--- NOTE | 2018-09-04 13:56 | PDOC.PALCO ---
Palliative Care Consult - Consult Details Requesting Physician: Dr Johnson Reason for Consult: goals of care Family Members Present: Christopher daughter "Irena" - Pertinent HPI 83 year old female came [facility] with nausea and vomiting for greater part of a day, became hypertensive and then transferred to the ER for further evaluation. Oskar twbrandon found tto be confused, disoriented, increase in fatigue. Admitted for further evaluation. ROS decrease in weight, increase in fatigue/decrease in ability to perform ADL, nausea and vomiting that has resolved, all systems negative. - Pertinent PMH alzheimer, Parkinson,, HTN, Hypothyroid, DMII, GERD, CHF, history of GI bleed, history of CVA - Social History Smoking Status: Former smoker Smoking: quit greater than 1 year Alcohol Use: none Drug Use History: none Living Situation: jail resident - Medications MAR Reviewed: Yes - Allergies Allergies/Adverse Reactions: Allergies Allergy/AdvReac Type Severity Reaction Status Date / Time iodine Allergy Severe Anaphylaxis Verified 05/28/16 10:47 shellfish derived Allergy Severe Anaphylaxis Verified 05/28/16 10:47 codeine Allergy Unknown Verified 05/28/16 10:47 Sulfa (Sulfonamide Allergy Unknown Verified 05/28/16 10:47 Antibiotics) adhesive tape Allergy Verified 05/28/16 10:47 Latex, Natural Rubber Allergy Verified 05/28/16 10:47 - Subjective Delayed verbal response, speech weak. Denies pain, nausea, vomiting. States that she is ready to go "Home" Back to [facility] - Objective Vital Signs: Vital Signs - Most Recent Temp Pulse Resp BP Pulse Ox 98 F 54 L 16 182/62 H 91 L 09/04/18 12:36 09/04/18 12:38 09/04/18 12:36 09/04/18 12:36 09/04/18 12:36 Palliative Performance Scale: 30 - Physical Exam Constitutional: NAD HEENT: PERRLA, moist MMs Respiratory: no wheezing, unlabored breathing Cardiovascular: RRR Gastrointestinal: soft, non-tender Musculoskeletal: no edema Deviation from normal: Memory loss, delayed verbal response Psychiatric: normal affect Deviation from normal: Delayed response - Problem List (1) Palliative care encounter Code(s): Z51.5 - ENCOUNTER FOR PALLIATIVE CARE Current Visit: Yes Status: Acute Assessment: Appropriate for hospice care, christopher to be discharged to [facility] (2) Hyponatremia Code(s): E87.1 - HYPO-OSMOLALITY AND HYPONATREMIA Current Visit: Yes Status : Acute Comments: Resolved. Patient with decrease in intake. [facility] to care for patient and teach family benefit verses risk of hydration for comfort measures. (3) Physical deconditioning Code(s): R53.81 - OTHER MALAISE Current Visit: Yes Status: Chronic Assessment: Frail, cachectic. Temporal and clavicular wasting. Decreased intake/poor appetite (4) Parkinsons disease Code(s): G20 - PARKINSON'S DISEASE Current Visit: No Status: Chronic (5) Polypharmacy Code(s): Z79.899 - OTHER GROUP HOME (CURRENT) DRUG THERAPY Current Visit: No Status: Chronic Comments: Would recommend to Discontinue all vitamins and Sinemet and monitor other medications as patient declines some cardiac medications will need to be discontinued. - Plan/Recommendations Plan: *Keep Iv site if possible as [facility] is assuming care of patient after discharge and may gently hydrate patient. *Recommend D/C all vitamins and supplements *Recommend stopping Sinemet and frequently re-evaluating other medications for therapeutic effect as patient declines *Moustapha Pisano RN Palliative care completing OOHDNAR with family [60] minutes spent on this encounter with >50% of the time in counseling and coordination of care. Thank you for this very appropriate consult.
[2018-09-04 14:49] VITALS: BP 152/61
[2018-09-04] MEDS: Ondansetron ODT 4 MG TAB PO PRN (14:53)
[2018-09-05] MEDS ORDERED: Chlorthalidone 25 MG TAB PO SCH (09:00)
--- NOTE | 2018-09-05 10:44 | PQF ---
EFE ROWLEY ANDREA, MD [id number] CLINICAL DOCUMENTATION IMPROVEMENT CLARIFICATION FORM: ICD-10 Updated PLEASE DO AN ADDENDUM TO THE PROGRESS NOTE WITH ANY DOCUMENTATION UPDATES OR ADDITIONS AND CARRY THROUGH TO DC SUMMARY. THANK YOU. Date: 09/05/2018 ATTN: DR. Neli GONZALES Please exercise your independent, professional judgment in responding to the clarification form. Clinical indicators are provided on the bottom of this form for your review. Please check appropriate box(s): [ ] Protein Calorie Malnutrition: [ ] Mild [ ] Moderate [ X ] Severe [ ] Other Malnutrition (please specify) __ [ ] Underweight without malnutrition [ X ] Cachexia [ ] Other diagnosis [ ] Unable to determine In addition, please specify: Present on Admission (POA): [ X ] Yes [ ] No [ ] Unable to determine CLINICAL INDICATORS - SIGNS / SYMPTOMS / LABS 08/31 H & P ([facility]) PER DAUGHTER PT HAS DECREASED PO INTAKE, NOTICED WEIGHT LOSS OVER PAST FEW MONTHS 09/01 NUTRITION ASSESSMENT: DX: MALNUTRITION R/T POSSIBLE DEMENTIA EVIDENCED BY 10.6% WEIGHT LOSS OVER PAST 3 MONTHS, MODERATE LOSS OF SUBCUTANEOUS FAT AROUND ORBITAL REGION. 09/01 PN ( [facility]) POOR PO INTAKE 09/02 PN ( [facility]) NOT EATING WELL AND COMPLAINS FOOD HAS NO TASTE 09/03 PN ( [facility]) PT STILL ISN'T EATING RISK: ADVANCED AGE ( 83) JAIL RESIDENT ( [facility] H & P) DX OF DEMENTIA ( [facility] H & P) TREATMENTS: NUTRITION ASSESSMENT ENSURE ENLIVE TID Moderate Malnutrition (in acute illness) Energy Intake: <75% of estimated energy requirement for > 7 days Weight Loss: 1-2%/1 week; 5%/ 1 month; 7.5%/3 months Other: mild body fat loss; mild muscle mass loss; mild fluid accumulation; Severe Malnutrition (in acute illness) Energy Intake: < 50% of estimated energy requirement for > 5 days Weight Loss: >1-2%/1 week; >5%/1 month; >7.5%/3 months Other: moderate body fat loss; moderate muscle mass loss; moderate- severe fluid accumulation; measurably reduced sports book writer strength Moderate Malnutrition (in chronic illness) Energy Intake: <75% of estimated energy requirement for >1 month Weight Loss: 5%/1 month; 7.5%/3 months; 10%/6 months; 20%/1 year Other: mild body fat loss; mild muscle mass loss; mild fluid accumulation Severe Malnutrition (in chronic illness) Energy Intake: <75% of estimated energy requirement for >1 month Weight Loss: >5%/1 month; >7.5%/3 months; >10%/6 months; >20%/1 year Other: severe body fat loss; severe muscle mass loss; severe fluid accumulation ; measurably reduced sports book writer strength THANK YOU! LUIS ALFREDO (This form is maintained as a part of the permanent medical record) 2015 [employer] All Rights Reserved [email or web address] [phone] MTDD
--- NOTE | 2018-09-05 12:43 | DIS ---
DATE OF ADMISSION: 08/31/2018 DATE OF DISCHARGE: 09/04/2018 RESIDENT: Alexis Johnson ADMITTING ATTENDING: Eduard Lara DISCHARGING ATTENDING: Michael Torrez CONSULTATIONS: 1. Physical Therapy. 2. Occupational Therapy. 3. Dietitian. 4. Palliative Care. PROCEDURE PERFORMED: None. PRIMARY DIAGNOSIS: Hypovolemic Hyponatremia SECONDARY DIAGNOSES: 1. Dementia. 2. Diabetes type 2. 3. History of CVA. 4. History of GI bleed. 5. Gastroesophageal reflux disease. 6. History of urinary tract infection. 7. Hypothyroidism. 8. Hypertension. 9. Asymptomatic bacteriuria. 10. Physical deconditioning and poor p.o. intake. 11. Parkinson's. 12. 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 13. Polypharmacy DISCHARGE MEDICATIONS: 1. Aspirin 81 mg daily. 2. Cepacol lozenge q.12 hours p.r.n. 3. Dulcolax 10 mg suppository AK daily p.r.n. 4. Calcium carbonate or Tums 500 mg p.o. q.4 hours p.r.n. 5. Colace 100 mg p.o. b.i.d. p.r.n. 6. Folic acid 0.8 mg p.o. daily. 7. Guaifenesin 200 mg p.o. q.4 hours p.r.n. 8. Hydrocortisone 30 g cream p.r.n. for rectal pain. 9. Levothyroxine 100 mcg p.o. q.a.m. 10. Loperamide 2 mg p.o. p.r.n. for diarrhea, loose stools. 11. Melatonin 6 mg p.o. at bedtime. 12. Multivitamin 1 tablet p.o. daily. 13. Nystatin 1 tube p.r.n. for rash or itching. 14. MiraLAX p.o. daily. 15. Insulin 16. Coenzyme Q10 of 100 mg p.o. daily. 17. Prozac 40 mg daily. 18. Ferrous sulfate 325 mg p.o. b.i.d. with meals. 19. Cholecalciferol 1000 units p.o. daily. 20. Sinemet 10/100 mg tablet p.o. t.i.d. 21. Amlodipine 5 mg p.o. daily. DISCONTINUED MEDICATIONS: 1. Zofran. 2. Sinemet 50/200. 3. Prozac 80 mg. 4. Lisinopril. 5. Losartan/hydrochlorothiazide. 6. Clonidine tablet and patch. HISTORY OF PRESENT ILLNESS: Ms. Harp is an 83-year-old female, senior living resident of [facility] with history of dementia, diabetes type 2, hypertension, CAV, GI bleed, and CHF status post CABG, who presents with nausea and vomiting. The patient was confused and disoriented, so the history was obtained from daughter at admission. Daughter states that Ms. Harp was in her usual state of health until this morning when they got a call from the senior living that she was found hunched over the toilet vomiting. She was initially hypertensive at the senior living and was then transported to the emergency department for further evaluation and management. The daughter noted that she was generally tired, more clammy, and less talkative today. They state she has decreased p.o. intake as of late, barely eating any food or drinking any liquids other than a few sips of Ensure at meals and has noted weight loss over last few months. She currently denies any chest pain, shortness of breath, diarrhea, constipation, dysuria, or abdominal pain. No recent illness. She does not have any history of recent UTIs per the daughter. She has a history of GI bleeds requiring transfusion. Over the last few years, her doctors have been unable to identify location through endoscopy and [facility] at that time. No recent signs or symptoms of acute GI bleed. In the ED, she was given 1 liter saline bolus and Zofran to relieve the nausea. Her sodium at that time was found to be 125 and she was admitted for symptomatic hyponatremia. UA was found to have 4-6 white blood cells, 1+ bacteria, and hyaline cast. She had no symptoms. She was not treated for asymptomatic bacteriuria during her stay, since there were no signs or symptoms. Her sodium trended from 125 up to 133 and back down to 130. Her sodium at last discharge was 132 and urine culture showed no growth at 48 hours. Urine sodium, osmolality, and serum sodium were obtained and found that the hyponatremia was due to hypovolemia. The patient's mentation improved with the discontinuation of her home medications. She was found to have around 30 medications on board at the time of the admission. We slowly and progressively discontinued her lisinopril, hydrochlorothiazide, and losartan because they likely cause the hyponatremia. We also discontinued her clonidine and Aricept and eventually cut down on her Sinemet and Prozac. The patient's family felt she was much improved from her baseline on admission and more so than she has been in recent years. DISPOSITION: Ms. Harp is stable and she will be discharged to [facility] in [place], [place] with the assistance of [facility]. DISCHARGE INSTRUCTIONS: 1. Location: [facility]. 2. Diet: Regular. Encourage p.o. intake. 3. Activity: She is a fall-risk, so the patient will need assistance with daily activities. 4. Followup: The patient should follow up within 7 days of discharge to Afsaneh Tee, her primary care provider. Job ID: [id number] MTDD
--- NOTE | 2018-09-06 16:58 | EKG ---
Test Reason : EMERGENCYEXAM Blood Pressure : / mmHG Vent. Rate : 045 BPM Atrial Rate : 045 BPM P-R Int : 212 ms QRS Dur : 088 ms QT Int : 500 ms P-R-T Axes : 041 -07 -06 degrees QTc Int : 432 ms Marked Sinus bradycardia with 1st degree AV block Confirmed by NIGEL BACK ([id number]), photograph editor MACKENZIE BURDEN ([id number]) on 09/06/2018 4:58:19 PM Referred By: WONG Confirmed By:NIGEL BACK
== END 2018-09-04 17:17 | disposition hospice, inpatient (51) | DRG 641 ==
LOC: ERS 08:29 → T4-B 10:16
PROVIDERS: ADMIT Student in an Organized Health Care Education/Training Program; ATTEND Student in an Organized Health Care Education/Training Program
DX: E87.1 Hypo-osmolality and hyponatremia (principal); I11.0 Hypertensive heart disease with heart failure; E11.9 Type 2 diabetes mellitus without complications; I50.9 Heart failure, unspecified; Z66 Do not resuscitate; G20 Parkinson's disease; E03.9 Hypothyroidism, unspecified; I25.10 Atherosclerotic heart disease of native coronary artery without angina pectoris; G30.9 Alzheimer's disease, unspecified; F02.80 Dementia in other diseases classified elsewhere, unspecified severity, without behavioral disturbance, psychotic disturbance, mood disturbance, and anxiety; D63.8 Anemia in other chronic diseases classified elsewhere; K21.9 Gastro-esophageal reflux disease without esophagitis; Z90.710 Acquired absence of both cervix and uterus; Z95.1 Presence of aortocoronary bypass graft; Z87.440 Personal history of urinary (tract) infections; Z88.2 Allergy status to sulfonamides; Z88.8 Allergy status to other drugs, medicaments and biological substances; Z88.0 Allergy status to penicillin; Z91.013 Allergy to seafood; Z86.73 Personal history of transient ischemic attack (TIA), and cerebral infarction without residual deficits; Z91.040 Latex allergy status
CPT/HCPCS: 36415; 36416; 51701; 80048; 80053; 80061; 81003; 81015; 82306; 82570; 82607; 82728; 82747; 83540; 83550; 83735; 83930; 83935; 84100; 84300; 84443; 84484; 85025; 85046; 86803; 87086; 93005; 96361; 96374; A4353; J0360; J1650; J2405; J3475; J3480; Q0162